=== PATIENT | female | born 1935 | race American Indian/Alaskan Native ===

== ENCOUNTER 2017-01-11 15:01 | Inpatient (IN) | payer MEDICAID, OTHER ==
[2017-01-11 15:09] VITALS: BMI 31.4
[2017-01-11 16:28] LABS: BASO # 0.03 K/mm3 (0.0-2.0); BASO % 0.5 % (0.0-3.0); EOS # 0.2 (0.0-0.7); EOS % 2.7 % (1.5-5.0); GRAN # 3.04 (1.4-6.5); GRAN % 54.9 % (50.0-68.0); HEMATOCRIT 45.6 % (36.0-48.0); LYMPH % 35.9 % (22.0-35.0); MEAN CELL VOLUME 79.7 fl (80.0-105.0); MEAN CORPUSCULAR HEMOGLOBIN 27.4 pg (25.0-35.0); MEAN CORPUSCULAR HGB CONC 34.4 g/dl (31.0-37.0); MEAN PLATELET VOLUME 10.2 fl (7.0-11.0); MONO # 0.3 (0.1-0.6); RED CELL DISTRIBUTION WIDTH 15.2 % (11.5-14.5); WHITE BLOOD COUNT 5.5 10^3/ul (4.5-11.0)
[2017-01-11 16:32] LABS: ALB/GLOB RATIO 1.4 (1.1-1.8); ALKALINE PHOSPHATASE 87 U/L (38-126); ALT/SGPT 33 U/L (7-56); AST/SGOT 37 U/L (14-36); BILIRUBIN,TOTAL 0.9 mg/dL (0.2-1.3); BLOOD UREA NITROGEN 9 mg/dL (7-21); CALCIUM 10.2 mg/dL (8.4-10.5); CARBON DIOXIDE 28 mmol/L (21-33); CHLORIDE 102 mmol/L (98-107); GFR AFRICAN-AMERICAN > 60; GLUCOSE,RANDOM 87 mg/dL (70-110); POTASSIUM 4.6 mmol/L (3.6-5.0); SODIUM 141 mmol/L (132-148); TOTAL PROTEIN 8.5 g/dL (5.8-8.3)
[2017-01-11 16:41] LABS: URINE BILIRUBIN NEGATIVE (NEGATIVE); URINE BLOOD NEGATIVE (NEGATIVE); URINE GLUCOSE (UA) NEGATIVE (NEGATIVE); URINE KETONE NEGATIVE (NEGATIVE); URINE LEUKOCYTE ESTERASE NEGATIVE Leu/uL (NEGATIVE); URINE PROTEIN NEGATIVE mg/dL (<30 mg/dL); URINE UROBILINOGEN 0.2 E.U./dL (<1 E.U./dL)
[2017-01-11 16:44] LABS: URINE APPEARANCE CLEAR (CLEAR); URINE COLOR LIGHT YELLOW (YELLOW)
[2017-01-11 16:44] LABS: TROPONIN I < 0.01 ng/mL
--- NOTE | 2017-01-11 17:22 | ED PDOC ---
Arrival/HPI <Neville Le - Last Filed: 01/11/17 20:17> - General Historian: Patient <Dorota Hernandez PA-C - Last Filed: 01/11/17 20:23> - General Chief Complaint: High Blood Pressure Time Seen by Provider: 01/11/17 15:24 - History of Present Illness Narrative History of Present Illness (Text): 01/11/17 17:19 81 yo F w/ pmh of HTN, reports feeling dizzy with no vertigo, associated with throbbing headache and palpitations this AM, she then checked her BP, which was elevated at 200 systolic, she took her BP medication, losartan. Afterwards, she checked her BP again and was still >200 systolic, and took her asa. States that she waited for her son to bring her to the ER, here she reports still feeling slightly dizzy with a mild headache. Reports (-) worsening of symptoms with movement of head or standing. Otherwise: (-) lightheadedness, (-) trauma, (-) URI symptoms, (-) tinnitus, (-) hearing loss, (-) chest pain, (-) SOB, (-) dyspnea, (-) fever, (-) vomiting, (-) diarrhea, (-) syncope, (-) GI bleeding. She adds that her HR is normally between 50-60, and that her pmd is aware. PMD Tosha Cloud (Dorota Hernandez PA-C) Past Medical History - Provider Review Nursing Documentation Reviewed: Yes - Infectious Disease Hx of Infectious Diseases: None - Cardiac Hx Hypertension: Yes Other/Comment: bradycardia. LBBB - Endocrine/Metabolic Hx Diabetes Mellitus Type 2: Yes - Psychiatric Hx Substance Use: No - Past Surgical History Past Surgical History: No Previous - Anesthesia Hx Anesthesia: Yes Hx Anesthesia Reactions: No Hx Malignant Hyperthermia: No - Suicidal Assessment Feels Threatened In Home Enviroment: No <Dorota Hernandez PA-C - Last Filed: 01/11/17 20:23> Family/Social History - Physician Review Nursing Documentation Reviewed: Yes Family/Social History: No Known Family HX Smoking Status: Never Smoked Hx Alcohol Use: No Hx Substance Use: No Hx Substance Use Treatment: No <Dorota Hernandez PA-C - Last Filed: 01/11/17 20:23> Allergies/Home Meds <Neville Le - Last Filed: 01/11/17 20:17> <Dorota Hernandez PA-C - Last Filed: 01/11/17 20:23> Allergies/Adverse Reactions: Allergies No Known Allergies Allergy (Verified 08/18/14 00:47) Home Medications: Home Meds Medication Instructions Recorded Confirmed Aspirin [Aspirin Chewable] 81 mg PO DAILY 08/18/14 01/11/17 Ergocalciferol [Drisdol 50,000 1 tab PO Q7D 01/11/17 01/11/17 Intl Units Cap] Losartan [Cozaar] 1 tab PO DAILY 01/11/17 01/11/17 Review of Systems - Review of Systems Constitutional: Normal. absent: Fatigue, Weight Change, Fevers Respiratory: Normal. absent: SOB, Cough, Sputum Cardiovascular: Normal, Palpitations. absent: Chest Pain, Edema Gastrointestinal: Normal. absent: Abdominal Pain, Diarrhea, Vomiting, Appetite Changes Musculoskeletal: Normal. absent: Arthralgias, Back Pain, Neck Pain Skin: Normal. absent: Rash, Pruritis, Skin Lesions Neurological: Normal, Headache, Dizziness. absent: Focal Weakness <Dorota Hernandez PA-C - Last Filed: 01/11/17 20:23> Physical Exam <Neville Le - Last Filed: 01/11/17 20:17> <Dorota Hernandez PA-C - Last Filed: 01/11/17 20:23> - Physical Exam Narrative Physical Exam (Text): 01/11/17 17:25 GENERAL APPEARANCE: Patient is awake, alert, oriented x 3, in no acute distress. SKIN: Warm, dry; (-) cyanosis. HEAD: (-) scalp swelling or tenderness. EYES: (-) conjunctival pallor. ENMT: TMs normal. Mucous membranes moist. NECK: (-) tenderness, (-) stiffness, (-) lymphadenopathy. Carotids: (-) bruit. CHEST AND RESPIRATORY: (-) rales, (-) rhonchi, (-) wheezes; breath sounds equal bilaterally. HEART AND CARDIOVASCULAR: (+) bradycardic, (-) irregularity; (-) murmur, (-) gallop. ABDOMEN AND GI: Soft; (-) distention, (-) tenderness, (-) rebound, (-) guarding , (-) palpable masses, (-) flank tenderness. EXTREMITIES: (-) deformity; (-) edema. Distal pulses: present. NEURO AND PSYCH: Mental status as above. stock control clerk: (-) nystagmus; Pupils equal & reactive, EOMI, (-) facial asymmetry; (-) dysarthria; tongue and uvula midline. Strength and DTRs symmetric. Gait: normal. (Dorota Hernandez PA-C) Vital Signs Temp Pulse Resp BP Pulse Ox 01/11/17 17:44 45 L 16 163/83 H 100 01/11/17 15:09 97.9 F 46 L 18 213/82 H 99 Medical Decision Making <Neville Le - Last Filed: 01/11/17 20:17> <Dorota Hernandez PA-C - Last Filed: 01/11/17 20:23> ED Course and Treatment: 01/11/17 17:23 81 yo F w/ pmh of HTN, reports feeling dizzy with no vertigo, associated with throbbing headache and palpitations this AM, she then checked her BP, which was elevated at 200 systolic, she took her BP medication, losartan. Previous medical records reviewed : patient last seen in this ED on 08/18/14, for elevated bp, it was noted that the patient was on losartan at that time and the patient also mentioned that her HR is normally in the 50's. DDx : hypertensive urgency, vertigo, migraine headache Plan: -- Labs -- IV -- Urinalysis -- EKG -- CXR -- Tylenol -- Reassess and disposition -- quality assurance monitor chassis EKG: SB at 46 bpm, w/ RBBB, (-) AV block noted, (-) acute ST changes, as read by [facility]. CXR : NAD, as read by [facility]A quality assurance monitor chassis shows : BP 195/86 P fluctuating 39-42 Labs reviewed and are wnl. On reevaluation, patient is laying in bed comfortably in no acute distress. Patient reports no headache, dizziness, palpitations, chest pain, shortness of breath at this time. CT head still pending. CT head is negative. On re-evaluation, patient is laying in bed in no distress. VS P 40's, BP 163/82 O2 sat 100%RA. Patient continues to deny any headache, dizziness, palpitations, chest pain, shortness of breath at this time. Repeat exam : lungs CTA, cardiac : +bradycardia, repeat neuro exam shows no focal findings. Based on history, exam and diagnostic results plan will be for inpatient obs to tele. Case d/w Dr. Givens, who came and evaluated the patient, agrees with plan for tele observation. Patient states she fully agrees with and understands further plan for inpatient tele observation. I have given the patient opportunity to ask any additional questions. (aDvid FRAZIER,Dorota Carty) - Lab Interpretations Lab Results: 01/11/17 16:00 01/11/17 16:00 Lab Results 01/11/17 16:25: Urine Color Light yellow, Urine Appearance Clear, Urine pH 6.0, Ur Specific [place] 1.010, Urine Protein Negative, Urine Glucose (UA) Negative, Urine Ketones Negative, Urine Blood Negative, Urine Nitrate Negative, Urine Bilirubin Negative, Urine Urobilinogen 0.2, Ur Leukocyte Esterase Negative 01/11/17 16:00: Sodium 141, Potassium 4.6, Chloride 102, Carbon Dioxide 28, Anion Gap 16, BUN 9, Creatinine 0.7, Est GFR ( Amer) > 60, Est GFR (Non- Af Amer) > 60, Random Glucose 87, Calcium 10.2, Total Bilirubin 0.9, AST 37 H, ALT 33, Alkaline Phosphatase 87, Lactate Dehydrogenase 620, Total Creatine Kinase 112, Troponin I < 0.01, Total Protein 8.5 H, Albumin 4.9 H, Globulin 3.6 , Albumin/Globulin Ratio 1.4 01/11/17 16:00: WBC 5.5, RBC 5.72, Hgb 15.7, Hct 45.6, MCV 79.7 L, MCH 27.4, MCHC 34.4, RDW 15.2 H, Plt Count 209, MPV 10.2, Gran % 54.9, Lymph % (Auto) 35.9 H, Edwards % (Auto) 6.0, Eos % (Auto) 2.7, Baso % (Auto) 0.5, Gran # 3.04, Lymph # 2.0, Edwards # 0.3, Eos # 0.2, Baso # 0.03 - RAD Interpretation Narrative RAD Interpretations (Text): 01/11/17 18:17 CT head : FINDINGS: HEMORRHAGE: No intracranial hemorrhage. BRAIN: No mass effect or edema. No atrophy or chronic microvascular ischemic changes. VENTRICLES: Unremarkable. No hydrocephalus. CALVARIUM: Unremarkable. PARANASAL SINUSES: Unremarkable as visualized. No significant inflammatory changes. MASTOID AIR CELLS: Unremarkable as visualized. No inflammatory changes. OTHER FINDINGS: None. IMPRESSION: Normal CT of the Head. (Dorota Hernandez PA-C) Radiology Orders: 01/11/17 16:09 CHEST PORTABLE [RAD] Stat 01/11/17 16:11 HEAD W/O CONTRAST [CT] Stat - Medication Orders Current Medication Orders: Aspirin (Aspirin Chewable) 81 mg PO DAILY [facility] Aspirin (Ecotrin) 81 mg PO DAILY [facility] Enoxaparin Sodium (Lovenox) 40 mg SC DAILY [facility] PRN Reason: Protocol Ergocalciferol (Drisdol 50,000 Intl Units Cap) 1 cap PO MON [facility] Hydralazine HCl (Apresoline) 10 mg PO BID [facility] Losartan Potassium (Cozaar) 100 mg PO DAILY [facility] Pantoprazole Sodium (Protonix Ec Tab) 20 mg PO 0600,1600 [facility] Discontinued Medications Acetaminophen (Tylenol 325mg Tab) 650 mg PO STAT [facility] Stop: 01/11/17 16:10 Last Admin: 01/11/17 17:13 Dose: 650 mg - PA / SHIP STEWARD / Resident Statement ED has reviewed & agrees with the documentation as recorded. <Neville Le - Last Filed: 01/11/17 20:17> - PA / SHIP STEWARD / Resident Statement ED has reviewed & agrees with the documentation as recorded. <Dorota Hernandez PA-C - Last Filed: 01/11/17 20:23> Disposition/Present on Arrival <Neville Le - Last Filed: 01/11/17 20:17> - Present on Arrival Any Indicators Present on Arrival: No History of DVT/PE: No History of Uncontrolled Diabetes: No Urinary Catheter: No History of Decub. Ulcer: No History Surgical Site Infection Following: None - Disposition Have Diagnosis and Disposition been Completed?: Yes Disposition Time: 19:00 Patient Plan: Observation, Telemetry <Dorota Hernandez PA-C - Last Filed: 01/11/17 20:23> - Disposition Diagnosis: Symptomatic bradycardia, Hypertensive urgency Disposition: HOSPITALIZED Condition: STABLE Referrals: Anish Givens MD [Primary Care Provider] - Follow up with primary Forms: [facility] ([place])
--- NOTE | 2017-01-11 18:14 | CT ---
PROCEDURE: CT HEAD WITHOUT CONTRAST. HISTORY: dizziness COMPARISON: None available. TECHNIQUE: Axial computed tomography images were obtained through the head/brain without intravenous contrast. Radiation dose: Total exam DLP = 887.13 mGy-cm. This CT exam was performed using one or more of the following dose reduction techniques: Automated exposure control, adjustment of the mA and/or kV according to patient size, and/or use of iterative reconstruction technique. FINDINGS: HEMORRHAGE: No intracranial hemorrhage. BRAIN: No mass effect or edema. No atrophy or chronic microvascular ischemic changes. VENTRICLES: Unremarkable. No hydrocephalus. CALVARIUM: Unremarkable. PARANASAL SINUSES: Unremarkable as visualized. No significant inflammatory changes. MASTOID AIR CELLS: Unremarkable as visualized. No inflammatory changes. OTHER FINDINGS: None. IMPRESSION: Normal CT of the Head.
[2017-01-11] MEDS ORDERED: Ergocalciferol 50,000 Intl Units Cap PO SCH (20:15)
[2017-01-11 21:02] LABS: CHOLESTEROL 174 mg/dL (130-200)
[2017-01-11 21:20] LABS: FREE T4 0.94 ng/dL (0.78-2.19); T4 9.4 ug/dL (5.5-11.0)
[2017-01-11 21:33] LABS: THYROID STIMULATING HORMONE 1.64 mIU/mL (0.46-4.68)
[2017-01-11] MEDS: Enoxaparin 40 mg Syringe SC SCH (21:59)
[2017-01-11 22:21] LABS: TROPONIN I < 0.01 ng/mL
[2017-01-11 22:44] LABS: INR 1.08 (0.93-1.08); PARTIAL THROMBOPLASTIN TIME 27.2 Seconds (23.7-30.8)
[2017-01-12 04:47] LABS: TROPONIN I < 0.01 ng/mL
--- NOTE | 2017-01-12 05:03 | HP ---
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 Denies headache or chest pain. The patient 13 system review was negative for dizziness. Negative for syncope. Negative for loss of consciousness. Hepatitis B surface antibody quantitative. CODE STATUS: Full code. LIVING WILL AND ADVANCED DIRECTIVE: None. ALLERGIES: None. Height is 5 feet. Weight is 161. BMI is 31.4. HOME MEDICATIONS: Cozaar 100 mg daily Drisdol 50,000 weekly, aspirin 81 daily. SOCIAL HISTORY: Negative for smoking. Negative for alcohol. Negative for nicotine dependence. PAST MEDICAL HISTORY: Significant for hypertension, history of bradycardia, history of history of palpitations, history of bradycardia, history of right bundle-branch block. The patient was advised permanent pacemaker during the office visit, which the patient declined, history of negative mammogram last year, history of left breast intramammary lymph node, sinus bradycardia. MENSTRUAL HISTORY: Postmenopausal. FAMILY HISTORY: Positive for hypertension. OCCUPATIONAL HISTORY: Disabled. PHYSICAL EXAMINATION: GENERAL: The patient is seen in the emergency room, bed 20. VITAL SIGNS: Heart rate 46/45, blood pressure initially 213/82,163/83 and 161/80, respiration 18-20, O2 sat 98-100%. The patient is seen lying in the bed. HEAD: Examination normocephalic, atraumatic. HEENT: Examination shows pink conjunctivae. Anicteric sclerae. No oropharyngeal lesion. No neck rigidity. CHEST: Examination kyphosis. LUNGS: Examination shows no rales, crackles or wheezing. CARDIOVASCULAR: Shows S1, S2. Positive systolic murmur left sternal border, left second intercostal space. ABDOMEN: Soft. Positive bowel sound. GENITALIA: Female. RECTAL: Examination is deferred. EXTREMITIES: Shows no pitting edema. No calf tenderness. No Homans' sign. NEUROLOGIC: The patient is alert, awake, responsive, follows command. Moves upper and lower extremity without assistance. Gait examination is deferred. MUSCULOSKELETAL: Examination shows a BMI of 30.54. PSYCHIATRIC: Examination negative. DIAGNOSTICS: CBC within normal limit. The patient's PT/PTT is pending. Chemistry is within normal limits except for AST of 37, total protein 8.5, albumin 4.9. Troponin is negative. Urinalysis negative. The patient had a CT of the head done ordered by the physician insurance underwriting assistant. CT of the head was negative. EKG was done in the emergency room shows sinus bradycardia with right bundle-branch block and heart rate in 40s. The patient was seen in the emergency room by the physician insurance underwriting assistant. The patient was given Tylenol in the ER. The patient was seen by the physician insurance underwriting assistant in the ER and recommends admission to telemetry for observation. IMPRESSION AND PLAN 1. Uncontrolled accelerated hypertension versus hypertensive urgency versus hypertensive emergency. 2. Symptomatic bradycardia. 3. Right bundle-branch block. 4. Symptomatic bradycardia with dizziness and uncontrolled hypertension. 5. History of right bundle-branch block. 6. History of hypovitaminosis D. PLAN: At this time, the patient is to be admitted to telemetry observation. Thyroid panel, lipid panel has been ordered, repeat cardiac enzymes ordered. PT/PTT ordered. Cardiology consultation ordered with Dr. Cloud as per the patient's daughter's request. The patient is started on hydralazine 10 mg twice a day, aspirin 81 daily Cozaar 100 mg daily, Drisdol 50,000 weeks, Ecotrin 81 mg daily, Lovenox 40 mg subcutaneous daily for DVT and GI prophylaxis, Protonix 40 mg daily. The patient has been ordered repeat EKG. Heart healthy diet, out of bed. At present, the patient's condition, diagnosis, treatment plan, management plan discussed and explained to the patient's daughter, Maricruz, works as a area secretary on the second floor. Regarding to the patient's daughter, the patient's does not want to stay in the hospital and wants to leave and the patient is also refusing to even talk about a pacemaker, which may be a very strong possibility due to the patient's symptoms and objective and subjective data finding. At present the patient will be admitted to telemetry. The patient's further management will be dependent upon the patient's clinical condition, hemodynamic status and as per the patient response to therapeutic intervention as per the patient's diagnostic test results and as per recommendation by cardiology. Dictated and electronically signed, not read. Signing off, Anish Givens MD
[2017-01-12] MEDS: Pantoprazole 20 mg EC Tab PO SCH ×2 (06:17→17:50)
[2017-01-12 07:17] LABS: HEMATOCRIT 39.4 % (36.0-48.0); MEAN CELL VOLUME 79.4 fl (80.0-105.0); MEAN CORPUSCULAR HEMOGLOBIN 27.4 pg (25.0-35.0); MEAN CORPUSCULAR HGB CONC 34.5 g/dl (31.0-37.0); MEAN PLATELET VOLUME 10.8 fl (7.0-11.0); RED CELL DISTRIBUTION WIDTH 15.1 % (11.5-14.5); WHITE BLOOD COUNT 5.2 10^3/ul (4.5-11.0)
[2017-01-12 07:38] LABS: ALB/GLOB RATIO 1.3 (1.1-1.8); ALKALINE PHOSPHATASE 71 U/L (38-126); ALT/SGPT 24 U/L (7-56); AST/SGOT 28 U/L (14-36); BILIRUBIN,TOTAL 0.7 mg/dL (0.2-1.3); BLOOD UREA NITROGEN 9 mg/dL (7-21); CALCIUM 9.5 mg/dL (8.4-10.5); CARBON DIOXIDE 29 mmol/L (21-33); CHLORIDE 105 mmol/L (98-107); GFR AFRICAN-AMERICAN > 60; GLUCOSE,RANDOM 82 mg/dL (70-110); POTASSIUM 3.7 mmol/L (3.6-5.0); SODIUM 142 mmol/L (132-148); TOTAL PROTEIN 6.5 g/dL (5.8-8.3)
--- NOTE | 2017-01-12 07:38 | RAD ---
HISTORY: dizziness COMPARISON: 08/18/2014 FINDINGS: LUNGS: No active pulmonary disease. PLEURA: No significant pleural effusion identified, no pneumothorax apparent. CARDIOVASCULAR: Normal. OSSEOUS STRUCTURES: No significant abnormalities. VISUALIZED UPPER ABDOMEN: Normal. OTHER FINDINGS: None. IMPRESSION: No active disease.
--- NOTE | 2017-01-12 09:44 | CARD ---
APPROVED REPORT EKG Measurement Heart [id number] <Conclusion> Marked sinus bradycardia Right bundle branch block Abnormal ECG
--- NOTE | 2017-01-12 09:56 | CP.PCM.PN ---
<NAVEENEVE - Last Filed: 01/12/17 10:50> Subjective - Date & Time of Evaluation Date of Evaluation: 01/12/17 Time of Evaluation: 09:34 - Subjective Subjective: Medicine Progress Note for Dr. Givens: Pt seen and examined at bedside. Pt denied any acute overnight events. At time of examination, pt denied CP, SOB, n/v/d, chills, fever, abdominal pain, dysuria , dizziness, or fatigue. Objective - Vital Signs/Intake and Output Vital Signs (last 24 hours): Temp Pulse Resp BP Pulse Ox 98.0 F 50 L 19 182/66 H 100 01/12/17 06:00 01/12/17 06:17 01/12/17 06:00 01/12/17 06:17 01/12/17 06:00 Intake and Output: 01/12/17 01/12/17 06:59 18:59 Intake Total 120 Output Total 0 Balance 120 - Medications Medications: Current Medications Aspirin (Aspirin Chewable) 81 mg PO DAILY [facility] Aspirin (Ecotrin) 81 mg PO DAILY [facility] Last Admin: 01/11/17 21:08 Dose: 81 mg Atorvastatin Calcium (Lipitor) 40 mg PO DIN [facility] Enoxaparin Sodium (Lovenox) 40 mg SC DAILY [facility] PRN Reason: Protocol Last Admin: 01/11/17 21:59 Dose: 40 mg Ergocalciferol (Drisdol 50,000 Intl Units Cap) 1 cap PO MON [facility] Last Admin: 01/11/17 21:59 Dose: 1 cap Hydralazine HCl (Apresoline) 10 mg PO BID [facility] Last Admin: 01/12/17 06:17 Dose: 10 mg Losartan Potassium (Cozaar) 100 mg PO DAILY [facility] Pantoprazole Sodium (Protonix Ec Tab) 20 mg PO 0600,1600 [facility] Last Admin: 01/12/17 06:17 Dose: 20 mg - Labs Labs: 01/12/17 07:10 01/12/17 04:05 PT 11.7 Seconds (9.9-11.8) 01/11/17 22:05 INR 1.08 (0.93-1.08) 01/11/17 22:05 APTT 27.2 Seconds (23.7-30.8) 01/11/17 22:05 - Constitutional Appears: No Acute Distress - Head Exam Head Exam: ATRAUMATIC, NORMOCEPHALIC - Eye Exam Eye Exam: EOMI, PERRL - ENT Exam ENT Exam: Mucous Membranes Moist - Neck Exam Neck Exam: Full ROM. absent: Lymphadenopathy, Tenderness, Thyromegaly - Respiratory Exam Respiratory Exam: Clear to Ausculation Bilateral. absent: Accessory Muscle Use , Rales, Rhonchi, Wheezes, Respiratory Distress - Cardiovascular Exam Cardiovascular Exam: Bradycardia, REGULAR RHYTHM, +S1, +S2. absent: Gallop, Rubs, Murmur - GI/Abdominal Exam GI & Abdominal Exam: Soft. absent: Distended, Guarding, Tenderness, Mass, Organomegaly, Rebound - Extremities Exam Extremities Exam: Normal Inspection - Neurological Exam Neurological Exam: Alert, Awake, Oriented x3 - Psychiatric Exam Psychiatric exam: Normal Affect, Normal Mood - Skin Skin Exam: Dry, Intact, Normal Color, Warm Assessment and Plan - Assessment and Plan (Free Text) Assessment: 81 yo F with PMHx of HTN, bradycardia, palpatations, and RBBB presented with elevated BP and dizziness will be evaluated and treated for hypertensive urgency and symptomatic bradycardia. Plan: 1. HTN Urgency - BP 213/82 on admission - HTN emergency not likely, no clinical signs of end organ damage - Cozaar 100 mg PO daily - Hydralazine 10 mg PO BID - C/w ASA, Lipitor 2. Symptomatic Bradycardia - EKG shows heart rate of 48, irregular rhythm, and RBBB; No AV block - CT head negative - Troponin negative x3 - UA, TSH, Lipid panel WNL - F/u Lyme IgG, IgM as Lyme disease can lead to conduction abnormalities - Cardiology Consulted 3. Anxiety - Xanax 0.25 mg PO daily GI/DVT PPx - Lovenox - Protonix Pt seen and discussed in detail with Dr. Givens. Hernan Kenney, PGY1 <Anish Givens U - Last Filed: 01/13/17 21:58> Objective - Vital Signs/Intake and Output Vital Signs (last 24 hours): Temp Pulse Resp BP Pulse Ox 97.6 F 76 17 101/60 100 01/13/17 18:00 01/13/17 18:00 01/13/17 18:00 01/13/17 18:00 01/13/17 06:00 - Medications Medications: Current Medications Alprazolam (Xanax) 0.25 mg PO DAILY [facility] PRN Reason: Protocol Stop: 01/20/17 10:01 Last Admin: 01/13/17 12:35 Dose: 0.25 mg Amlodipine Besylate (Norvasc) 10 mg PO DAILY [facility] Last Admin: 01/13/17 12:35 Dose: 10 mg Aspirin (Aspirin Chewable) 81 mg PO DAILY [facility] Last Admin: 01/13/17 12:36 Dose: 81 mg Atorvastatin Calcium (Lipitor) 40 mg PO DIN [facility] Last Admin: 01/13/17 16:56 Dose: 40 mg Clopidogrel Bisulfate (Plavix) 75 mg PO DAILY [facility] Enoxaparin Sodium (Lovenox) 40 mg SC DAILY [facility] PRN Reason: Protocol Last Admin: 01/13/17 12:36 Dose: 40 mg Ergocalciferol (Drisdol 50,000 Intl Units Cap) 1 cap PO MON [facility] Last Admin: 01/11/17 21:59 Dose: 1 cap Hydralazine HCl (Apresoline) 10 mg PO QID [facility]N PRN Reason: for sbp>170 Hydrochlorothiazide (Microzide) 12.5 mg PO DAILY [facility] Last Admin: 01/13/17 12:35 Dose: 12.5 mg Losartan Potassium (Cozaar) 100 mg PO DAILY [facility] Last Admin: 01/13/17 12:38 Dose: 100 mg Pantoprazole Sodium (Protonix Ec Tab) 20 mg PO 0600,1600 [facility] Last Admin: 01/13/17 15:00 Dose: 20 mg Polyethylene Glycol (Miralax) 17 gm PO BID [facility] Spironolactone (Aldactone) 25 mg PO DAILY [facility] Last Admin: 01/13/17 12:34 Dose: 25 mg - Labs Labs: PT 11.7 Seconds (9.9-11.8) 01/11/17 22:05 INR 1.08 (0.93-1.08) 01/11/17 22:05 APTT 27.2 Seconds (23.7-30.8) 01/11/17 22:05 Attending/Attestation - Attestation I have personally seen and examined this patient.: Yes I have fully participated in the care of the patient.: Yes I have reviewed all pertinent clinical information, including history, physical exam and plan: Yes
[2017-01-12] MEDS: Enoxaparin 40 mg Syringe SC SCH (10:35)
[2017-01-12] MEDS ORDERED: Potassium Chloride 20 mEq ER Tab PO ONE ×3 (11:03→13:14)
--- NOTE | 2017-01-12 14:19 | PN ---
DATE: 01/12/2017 SUBJECTIVE: The patient is seen in room 267, bed 2. PHYSICAL EXAMINATION: VITAL SIGNS: T-max is 98.0. Telemetry shows sinus bradycardia, heart rate still in 40s, blood pressure is 169/68, 182/66, and 137/72, respirations 19, and O2 saturation 100%. HEENT: Head examination; normocephalic and atraumatic. HEENT examination shows pink conjunctivae. Anicteric sclerae. No oropharyngeal lesion. NECK: No neck rigidity. CHEST: Kyphosis. LUNGS: Shows no rales, crackles, or wheezing. CARDIOVASCULAR: S1 and S2, regular rhythm. ABDOMEN: Soft. Positive bowel sounds. GENITALIA: Female. RECTAL: . MUSCULOSKELETAL: Shows a body mass index of 32. NEUROLOGIC: The patient is alert, awake, and oriented. According to the patient's daughter who I spoke to her on the phone, she reports the patient has been anxious. EXTREMITIES: Shows no pitting edema. No calf tenderness. No Homans sign. No clubbing. No cyanosis. VASCULAR: Palpable pulses. DIAGNOSTIC DATA: On 01/12/2017; WBC 5.2, hemoglobin and hematocrit 13.6 and 39.4, and platelet 203. Sodium 142, potassium 3.7, chloride 105, CO2 of 29, anion gap 12, BUN 9, creatinine 0.7, GFR greater than 60, glucose 82, and calcium 9.5. LFTs are normal. All 3 sets of cardiac enzymes are negative. Cholesterol 174, LDL 86, and HDL 57. Thyroid profile is within normal limits. Urinalysis is negative. Repeat EKG shows sinus bradycardia, right bundle-branch block, and sinus arrhythmia. IMPRESSION: 1. Uncontrolled hypertension versus hypertensive urgency and emergency. 2. Severe sinus bradycardia with right bundle-branch block with symptoms of dizziness. 3. Severe symptomatic bradycardia right bundle-bundle branch block with dizziness and uncontrolled hypertension. 4. Right bundle-branch block. 5. Hypovitaminosis D. 6. Uncontrolled hypertension. 7. Uncontrolled systolic hypertension. 8. Anxiety. 9. Elevated LDL. PLAN: At this time, we are awaiting evaluation by cardiology. The patient has been ordered hydralazine 10 mg twice a day, aspirin 81 daily, Cozaar 100 mg daily, Drisdol 50,000 weekly, and Ecotrin 81 mg daily. The patient was given dose of potassium 40 mEq by cardiology, Lipitor 40 mg daily, Lovenox 40 mg subcutaneously daily, Protonix 20 twice a day, and Xanax 0.25 daily. Holter monitor ordered by Cardiology. Echo ordered by Cardiology. Stress test ordered by Cardiology. The patient has been awaiting further diagnostic therapeutic intervention. We will await further recommendations by Cardiology. Regarding further management, the patient's daughter has been updated about the patient's further diagnostic and therapeutic intervention plan. All questions concerned and answered to satisfaction with the daughter. Dictated and electronically signed, not read. Anish Givens MD
--- NOTE | 2017-01-12 17:39 | CON ---
DATE OF SERVICE: 01/12/2017 REASON FOR CONSULTATION: Bradycardia, rule out need of pacemaker. HISTORY OF PRESENT ILLNESS: This is an 81-year-old female, admitted with complaints of elevated blood pressure, headache, some pressure in the chest, and dizziness. Denies any chest pain now. Denies any dizziness. Denies any syncope type of feeling, but yesterday was feeling dizzy. Blood pressure at home was found to be more than 200 according to the daughter. In ER, the blood pressure was 213/82. PAST MEDICAL HISTORY: Significant for hypertension, history of palpitation, history of bradycardia. SOCIAL HISTORY: Denies smoking, denies any history of alcohol abuse. CURRENT MEDICATIONS: The patient is on Cozaar 100 mg daily, aspirin, and ergocalciferol (Drisdol) 50,000 unit capsule every week. PREVIOUS CARDIAC WORKUP: Nothing significant in the computer, though the patient had an echo done before the cataract surgery 2 to 3 years ago and was thought to be normal from the top of the head which I can recall. REVIEW OF SYSTEMS: As per HPI. ALLERGIES: NO KNOWN DRUG ALLERGIES. PHYSICAL EXAMINATION: VITAL SIGNS: Height of the patient is 5 feet, weight of the patient is 161 pounds, body mass index 31.4 kg per m2, temperature 98, heart rate 58, blood pressure 169/68. HEENT: PERRLA. Extraocular ocular muscles intact. NECK: Supple. No carotid bruit or thyromegaly. CHEST: Clear to auscultation. HEART: S1 and S2 regular. ABDOMEN: Soft. EXTREMITIES: Clubbing and cyanosis negative. LABORATORY DATA: WBC 5.2, hemoglobin 13.6, hematocrit 39.4, platelet count 203. Chemistry shows sodium 142, potassium 3.7, chloride 105, carbon dioxide 20, anion gap of 12, BUN 9, creatinine 0.7, troponin 0.01 x3 negative. EKG shows sinus bradycardia, no acute ST-T changes noted. Telemetry strip reviewed, lowest heart rate was 38 at 1:45 a.m. Baseline EKG, sinus bradycardia with right bundle-branch block. IMPRESSION: An 81-year-old female with past medical longstanding history of hypertension, admitted with uncontrolled hypertension, chest pressure, and bradycardia. RECOMMENDATION: We will get echo with stress test, lipid profile, TSH, Holter to assess the need of a pacemaker. The patient is on 100 mg of losartan. Pressure is not well controlled. We will add Norvasc and hydrochlorothiazide plus increase p.r.n. of hydralazine. We will get the stress test tomorrow, so we will complete 24 hours of Holter without any interruption and we will do a stress test echo tomorrow. We will avoid rate-limiting calcium channel manoj or beta-manoj. We will put spironolactone and 25 mg hydrochlorothiazide and Norvasc and get a stress test tomorrow and echo. Further recommendation after workup and surveillance monitor to assess the need of pacemaker. We will follow with you. Thank you Dr. Givens for providing me the opportunity in taking care of the patient, Kevin Miller. Cori Cloud MD
--- NOTE | 2017-01-13 01:09 | CARD ---
APPROVED REPORT EKG Measurement Heart [id number] CO [id number] [id number] <Conclusion> Marked sinus bradycardia with sinus arrhythmia Right bundle branch block Abnormal ECG
[2017-01-13] MEDS: Pantoprazole 20 mg EC Tab PO SCH ×2 (05:31→15:00)
[2017-01-13] MEDS ORDERED: Potassium Chloride 20 mEq ER Tab PO ONE (08:47)
[2017-01-13] MEDS ORDERED: Aminophylline 25 mg/ml Inj ONE (09:30)
--- NOTE | 2017-01-13 12:25 | PN ---
REASON FOR CONSULTATION: Followup bradycardia, rule out need for pacemaker. SUBJECTIVE: The patient denies any chest pain, shortness of breath or any palpitation; on way to echo lab for a stress test. OBJECTIVE: GENERAL: Not in apparent distress. VITAL SIGNS: Telemetry strip shows heart rate 48. EKG shows normal sinus bradycardia, heart rate of 48. Temperature afebrile, heart rate 46, and blood pressure 144/73. HEENT: PERRLA, intact. NECK: Supple. No carotid bruit or thyromegaly. CHEST: Clear to auscultation. HEART: S1 and S2 regular. ABDOMEN: Soft. EXTREMITIES: Clubbing and cyanosis negative. LABORATORY DATA: Blood workup as follows: WBC is 5.2, hemoglobin 13.6, hematocrit 39.4, platelet count 203. Chemistry shows sodium 142, potassium 3.7, chloride 105, carbon dioxide 29, anion gap of 12, BUN 9, creatinine 0.7. Troponin remains 0.01, negative. IMPRESSION: Bradycardia, which has been for long time. Discussed with the daughter, Maricruz, who was in the telemetry. She said the last 2 to 3 years the patient has been bradycardic and was seen by me at one point for preop clearance for cataract. At that time, the patient was bradycardic asymptomatic; hypertension uncontrolled, admitting blood pressure 213/82, which has now resolved, and the patient has fairly stable blood pressure; rule out underlying coronary artery disease, rule out ischemia, rule out any structural heart disease. So far, no evidence of acute myocardial infarction, troponin remains negative. PLAN: To continue echo and stress test. Holter monitor is completed, we will review it. So far, it does not look like the patient needs pacemaker though the patient is bradycardic with baseline, but asymptomatic. Further recommendation will be made upon reviewing more telemetry strip and Holter to assist the need of pacemaker as well as stress test result. Interim, continue aggressive control of blood pressure. The patient is currently on losartan 100 mg, spironolactone added as well as hydrochlorothiazide was added amlodipine. The patient's blood pressure is fairly stable. We will monitor closely once the echo and the stress are done. Recommendation will be made to whether the patient definitely needs pacemaker or not. Interim, continue theater manager. We will discuss with the family. We will supplement potassium. Thank you Dr. Givens for providing me the opportunity in taking care of the patient. Cori Cloud MD
[2017-01-13] MEDS: Enoxaparin 40 mg Syringe SC SCH (12:36)
[2017-01-13 13:26] LABS: ALB/GLOB RATIO 1.3 (1.1-1.8); ALKALINE PHOSPHATASE 68 U/L (38-126); ALT/SGPT 16 U/L (7-56); AST/SGOT 30 U/L (14-36); BILIRUBIN,DIRECT 0.3 mg/dL (0.0-0.4); BILIRUBIN,TOTAL 1.1 mg/dL (0.2-1.3); BLOOD UREA NITROGEN 11 mg/dL (7-21); CALCIUM 9.8 mg/dL (8.4-10.5); CARBON DIOXIDE 25 mmol/L (21-33); CHLORIDE 104 mmol/L (98-107); GFR AFRICAN-AMERICAN > 60; GLUCOSE,RANDOM 102 mg/dL (70-110); MAGNESIUM 2.1 mg/dL (1.7-2.2); POTASSIUM 4.4 mmol/L (3.6-5.0); SODIUM 140 mmol/L (132-148); TOTAL PROTEIN 7.7 g/dL (5.8-8.3)
--- NOTE | 2017-01-13 14:33 | CP.PCM.PN ---
Objective - Vital Signs/Intake and Output Vital Signs (last 24 hours): Temp Pulse Resp BP Pulse Ox 98.2 F 46 L 20 148/70 100 01/13/17 06:00 01/13/17 06:00 01/13/17 06:00 01/13/17 12:35 01/13/17 06:00 Intake and Output: 01/13/17 01/13/17 06:59 18:59 Intake Total 360 Balance 360 - Medications Medications: Current Medications Alprazolam (Xanax) 0.25 mg PO DAILY [facility] PRN Reason: Protocol Stop: 01/20/17 10:01 Last Admin: 01/13/17 12:35 Dose: 0.25 mg Amlodipine Besylate (Norvasc) 10 mg PO DAILY [facility] Last Admin: 01/13/17 12:35 Dose: 10 mg Aspirin (Aspirin Chewable) 81 mg PO DAILY [facility] Last Admin: 01/13/17 12:36 Dose: 81 mg Atorvastatin Calcium (Lipitor) 40 mg PO DIN [facility] Last Admin: 01/12/17 17:50 Dose: 40 mg Enoxaparin Sodium (Lovenox) 40 mg SC DAILY [facility] PRN Reason: Protocol Last Admin: 01/13/17 12:36 Dose: 40 mg Ergocalciferol (Drisdol 50,000 Intl Units Cap) 1 cap PO MON [facility] Last Admin: 01/11/17 21:59 Dose: 1 cap Hydralazine HCl (Apresoline) 10 mg PO QID PRN PRN Reason: for sbp>170 Hydrochlorothiazide (Microzide) 12.5 mg PO DAILY [facility] Last Admin: 01/13/17 12:35 Dose: 12.5 mg Losartan Potassium (Cozaar) 100 mg PO DAILY [facility] Last Admin: 01/13/17 12:38 Dose: 100 mg Pantoprazole Sodium (Protonix Ec Tab) 20 mg PO 0600,1600 [facility] Last Admin: 01/13/17 05:31 Dose: 20 mg Spironolactone (Aldactone) 25 mg PO DAILY [facility] Last Admin: 01/13/17 12:34 Dose: 25 mg - Labs Labs: 01/12/17 07:10 01/13/17 13:00 PT 11.7 Seconds (9.9-11.8) 01/11/17 22:05 INR 1.08 (0.93-1.08) 01/11/17 22:05 APTT 27.2 Seconds (23.7-30.8) 01/11/17 22:05
--- NOTE | 2017-01-13 16:02 | CARD ---
APPROVED REPORT Protocol: LEXISCAN Test Type: Lexiscan Sestamibi Stress Test Attending Physician: Dr. Cori White Referring Physician: Dr. Anish Givens Test Indications: Chest Pain Height:5 ft 0 in Weight:161lbs Medications: Losartan, Vitamin D,Aspirin Medical History: 81 y/o female with a history of palpitations, diabetes, htn, hyperlipidemia, bradycardi Target HR: 139 bpm Resting ECG: RSR. RBBB. Resting Heart Rate: 45 bpm Resting Blood Pressure: 124/72mmHg Submaximum (85%): 118 bpm PROCEDURE Pharmacologic stress testing was performed using 0.4mg per 5ml of regadenoson given intravenously over 7-10 seconds. Reversal agent aminophyline 100 mg, given intravenously for Other. POST EXERCISE Reason for Termination: Protocol completed Target HR: No Max HR: 49 bpm 59% of Maximum Predicted HR: 139 bpm Exercise duration: 00:32 min:sec, 0 Stage Exercise capacity: 1.0METs Max Blood Pressure: 156/70mmHg Blood Pressure response to exercise: normal resting BP - appropriate response Heart Rate response to exercise: appropriate Chest Pain: No, none Angina index: 0 Arrhythmia: No, none ST Change: No, none Deviation: 0 mm INTERPRETATION Stress EKG Conclusion: IV LEXISCAN NUCLEAR STRESS TEST NEGATIVE FOR CHEST PAIN AND NEGATIVE FOR ST-T CHANGES. NUCLEAR SCAN REPORT PENDING. Signed by Cori White Electronically Approved: 01/13/2017 10:25:03 EXAM: Myocardial Perfusion REST/STRESS Stress Test Type: Pharmacologic Imaging Protocol Rest Spect myocardial perfusion imaging was performed in supine position 60 minutes following the injection of 10.3 mCi of Tc-99 Myoview. At peak stress, the patient was injected intravenously with 30.4mCi of Tc-99 tetrofosmin after an infusion time of 0 minutes and 10 seconds. Gated Stress Spect was performed 80 minutes after intravenous Tc-99 Myoview injection. The images were gated to evaluate regional wall motion and calculate ventricular ejection fraction.Images were reconstructed using backfilter projection method in short horizontal and verticle long axis. Spect slices were generated. LV Perfusion The quality of the study is good. The left ventricle is normal in size. The right ventricle is unremarkable. The lung uptake is normal. The distribution of tracer reveals a small area of mildly to moderately decreased perfusion in the apical wall on the stress study. The remainder of the LV myocardium is unremarkable. The rest myocardial perfusion study shows partial improvement of the defect. Wall Motion Normal gated wall motion of the left ventricle. LVEF = 63%. Conclusion 1. Probably abnormal SPECT myocardial perfusion study. 2. Partially reversible, apical defect is suspicious of ischemia. 3. Normal gated wall motion of the left ventricel.
[2017-01-13] MEDS ORDERED: Magnesium Hydroxide Susp 30 ml UD PO ONE (18:17)
--- NOTE | 2017-01-13 18:34 | CARD ---
APPROVED REPORT EXAM: Two-dimensional and M-mode echocardiogram with Doppler and color Doppler. INDICATION CP/LVFX 2D DIMENSIONS IVSd1.0 (0.7-1.1cm)LVDd3.6 (3.9-5.9cm) PWd1.2 (0.7-1.1cm)LVDs2.3 (2.5-4.0cm) FS (%) 36.0 %LVEF (%)66.7 (>50%) M-Mode DIMENSIONS Aortic Root2.70 (2.2-3.7cm)Aortic Cusp Exc.1.60 (1.5-2.0cm) Aortic Valve AoV Peak Gbysdtoe600.0cm/Nirav Peak GR.8mmHg Mitral Valve MV E Crebwird15.1cm/sMV A Hniawhya48.0cm/sE/A ratio0.5 TDI Lateral E' Peak V6.04cm/sMedial E' Peak V5.46cm/sE/Lateral E'8.6 E/Medial E'9.5 Pulmonary Valve PV Peak Szauxvio59.4cm/sPV Peak Grad.2mmHg Tricuspid Valve TR Peak Ersfvawf885pe/sRAP [id number] Peak Gr.24mmHg [id number] LEFT VENTRICLE The left ventricle is normal size. There is borderline concentric left ventricular hypertrophy. The left ventricular function is normal.EF-65% There is normal LV segmental wall motion. Transmitral Doppler flow pattern is Grade III-reversible restrictive diastolic dysfunction. No left ventricle thrombus noted on this study. There is no ventricular septal defect visualized. There is no left ventricular aneurysm. There is no mass noted in the left ventricle. RIGHT VENTRICLE The right ventricle is normal size. There is normal right ventricular wall thickness. The right ventricular systolic function is normal. ATRIA The left atrium is borderline dilated, in long [place] The right atrium is borderline dilated., in long axis. The interatrial septum is intact with no evidence for an atrial septal defect. AORTIC VALVE The aortic valve is thickened but opens well. No aortic regurgitation is present. There is no aortic valvular stenosis. There is no aortic valvular vegetation. MITRAL VALVE The mitral valve is thickened but opens well. Mitral annular calcification is moderate. Mitral regurgitation is trace. There is no mitral valve stenosis. There is no evidence of mitral valve prolapse. TRICUSPID VALVE The tricuspid valve leaflets are thickened , but open well. There is trace to mild tricuspid regurgitation.RVSP-34 mmof hg. There is no tricuspid valve stenosis. There is no tricuspid valve prolapse or vegetation. PULMONIC VALVE The pulmonary valve is normal in structure. There is trace pulmonic valvular regurgitation. There is no pulmonic valvular stenosis. GREAT VESSELS The aortic root is normal in size. The ascending aorta is normal in size. The pulmonary artery is normal. The IVC is normal in size and collapses >50% with inspiration. PERICARDIAL EFFUSION There is no pleural effusion. There is no pericardial effusion. <Conclusion> The left ventricle is normal size. There is borderline concentric left ventricular hypertrophy. The left ventricular function is normal.EF-65% Mitral regurgitation is trace. There is trace to mild tricuspid regurgitation.RVSP-34 mmof hg. The IVC is normal in size and collapses >50% with inspiration. There is no pericardial effusion.
--- NOTE | 2017-01-14 00:13 | PN ---
DATE: SUBJECTIVE: The patient is seen on the first floor stress lab. The patient is in the process of getting a stress test done. Overnight nurse's notes were reviewed. The patient slept overnight without any adverse event. The patient today was found to be sitting up in the chair watching TV. No distress noted. OBJECTIVE: VITAL SIGNS: The patient is afebrile, T-max is 98.2; heart rate high 40s to low 50s; blood pressure in the last 24 hours 182/66, 169/68, 125/68, 152/77, 144/73, 148/70; respiration 17; O2 sat is 98% to 100%. HEENT AND NECK: Head examination, normocephalic and atraumatic. HEENT examination shows pink conjunctivae. Anicteric sclerae. No oropharyngeal lesion. No neck rigidity. CHEST: Kyphosis. LUNGS: Examination shows no rales, crackles or wheezing. CARDIOVASCULAR: S1, S2, regular rhythm and bradycardic rhythm. Questionable systolic murmur in right second intercostal space, left second intercostal space, left sternal border. ABDOMEN: Soft. Positive bowel sounds. GENITALIA: Female. RECTAL: Examination deferred. EXTREMITIES: Show no pitting edema, no calf tenderness, no Homans' sign. MUSCULOSKELETAL: Examination shows a body mass index of 30. Gait examination is not tested. Urine cultures negative. The patient had a myocardial stress test, echo, and EKG; all reviewed. IMPRESSION: 1. Uncontrolled hypertension with hypertensive urgency and emergency. 2. Severe symptomatic bradycardia. 3. Probably abnormal SPECT myocardial perfusion study with decreased perfusion and partially reversible apical defect, suspicious for coronary ischemia with left ventricle ejection fraction of 63%. 4. Left ventricular ejection fraction of 66% with borderline concentric left ventricular hypertrophy with grade 3 reversible restrictive diastolic dysfunction. 5. Moderate mitral annular calcification and trace mitral regurgitation. 6. Thickened tricuspid leaflet with mild tricuspid regurgitation with right ventricular systolic pressure of 34 mmHg. 7. Trace pulmonic regurgitation. 8. Borderline concentric left ventricular hypertrophy. 9. Severe symptomatic sinus bradycardia with right bundle-branch block. 10. Questionable anxiety disorder. CURRENT MEDICATIONS: Aldactone 25 mg daily, hydralazine 10 mg q.i.d. p.r.n., aspirin 81 mg daily, Cozaar 100 mg daily, vitamin D 50,000 weekly. The patient has been given multiple doses of potassium by Dr. Cloud, even though the potassium appears to be within normal limits. The patient has received four doses of potassium since yesterday. Lipitor 40 mg daily, Lovenox 40 mg subcu daily, hydrochlorothiazide 12.5 mg daily, MiraLax 17 g twice a day, Norvasc 10 mg daily. The patient has been given Plavix 300 stat today and Plavix 75 mg daily from tomorrow. It appears that the patient is going to be proceeding with cardiac catheterization. The patient has been ordered to be kept n.p.o. except meds. The patient is on Protonix 20 mg twice a day and Xanax 0.25 daily for anxiety. PLAN: At this time, the patient is to be reevaluated by Cardiology for further recommendation for abnormal stress test. The patient's Holter monitor results are pending. At this time, the patient has been ordered n.p.o. past midnight. The patient has been ordered out of bed to chair. At present, the patient's further management will be dependent upon the patient's clinical condition, hemodynamic status and as per the patient response to therapeutic intervention and as per patient further recommendation by Cardiology. Dictated and electronically signed, not read. Signing off; Anish Givens MD
--- NOTE | 2017-01-14 02:33 | CARD ---
APPROVED REPORT EKG Measurement Heart [id number] WI [id number] <Conclusion> Marked sinus bradycardia Right bundle branch block Abnormal ECG
[2017-01-14] MEDS: Pantoprazole 20 mg EC Tab PO SCH ×3 (05:22→17:07)
[2017-01-14 06:48] LABS: ALB/GLOB RATIO 1.3 (1.1-1.8); ALKALINE PHOSPHATASE 68 U/L (38-126); ALT/SGPT 31 U/L (7-56); AST/SGOT 29 U/L (14-36); BILIRUBIN,TOTAL 0.9 mg/dL (0.2-1.3); BLOOD UREA NITROGEN 12 mg/dL (7-21); CALCIUM 9.6 mg/dL (8.4-10.5); CARBON DIOXIDE 27 mmol/L (21-33); CHLORIDE 102 mmol/L (95-110); GFR AFRICAN-AMERICAN > 60; GLUCOSE,RANDOM 93 mg/dL (70-110); MAGNESIUM 2.2 mg/dL (1.7-2.2); PHOSPHOROUS 3.1 mg/dL (2.5-4.5); POTASSIUM 3.9 mmol/L (3.6-5.0); SODIUM 139 mmol/L (132-148); TOTAL PROTEIN 6.6 g/dL (5.8-8.3)
[2017-01-14 07:50] LABS: BASO # 0.05 K/mm3 (0.0-2.0); BASO % 0.8 % (0.0-3.0); EOS # 0.3 (0.0-0.7); EOS % 5.3 % (1.5-5.0); GRAN # 3.2 (1.4-6.5); GRAN % 52.7 % (50.0-68.0); HEMATOCRIT 41.1 % (36.0-48.0); LYMPH # 1.8 (1.2-3.4); LYMPH % 28.9 % (22.0-35.0); MEAN CELL VOLUME 79.3 fl (80.0-105.0); MEAN CORPUSCULAR HEMOGLOBIN 27.8 pg (25.0-35.0); MEAN PLATELET VOLUME 10.6 fl (7.0-11.0); MONO # 0.8 (0.1-0.6); MONO % 12.3 % (1.0-6.0); RED CELL DISTRIBUTION WIDTH 14.9 % (11.5-14.5); WHITE BLOOD COUNT 6.1 10^3/ul (4.5-11.0)
[2017-01-14] MEDS ORDERED: Potassium Chloride 20 mEq ER Tab PO ONE (09:49)
[2017-01-14] MEDS: POLYETHYLENE GLYCOL 3350 17 GM/Dose PACKET PO SCH ×2 (10:40→17:07)
--- NOTE | 2017-01-14 11:05 | PN ---
DATE: 01/14/2017 REASON FOR CONSULTATION: Followup bradycardia, rule out need of pacemaker, and abnormal stress test. SUBJECTIVE: The patient denies any chest pain, shortness of breath, or any palpitation. OBJECTIVE/PHYSICAL EXAMINATION: As follows: GENERAL: Lying flat in the bed. VITAL SIGNS: Temperature is afebrile, heart rate is 52, and blood pressure is 153/80. HEENT: PERRLA. Extraocular muscles are intact. NECK: Supple. No carotid bruit or thyromegaly. CHEST: Clear to auscultation. HEART: S1 and S2 regular. ABDOMEN: Soft. EXTREMITIES: Clubbing and cyanosis negative. LABORATORY DATA: Blood workup as follows: WBC of 6.1, hemoglobin of 14.4, hematocrit of 41.1, and platelet count of 201. Chemistry shows sodium of 139, potassium of 3.9, chloride of 102, carbon dioxide of 27, anion gap of 14, BUN of 12, and creatinine of 0.7. Troponin remains negative. DIAGNOSTIC DATA: Stress test; the patient underwent IV Lexiscan yesterday read as probably abnormal except myocardial perfusion study partially reversible apical defects suspicious for ischemic ejection fraction reported 63%. The patient had echocardiography done yesterday ejection fraction of 65%, trace mitral regurgitation, mild tricuspid regurgitation, and RV systolic pressure of 35. IMPRESSION: Uncontrolled hypertension which is fairly stable now. Abnormal stress test and echocardiogram shows preserved left ventricular function. Bradycardia is baseline, the patient is running bradycardia for long time asymptomatic. RECOMMENDATIONS: Avoid beta-manoj, avoid heart rate limiting and calcium channel manoj. Discussed yesterday with the patient's daughter explained the patient about cardiac catheterization. the patient is scheduled for cardiac catheterization at 10:30. We will keep n.p.o. and loaded the Plavix last night. Further recommendation of the cardiac catheterization. We will follow with you. In the interim, continue beta-manoj, aspirin and Plavix. Discontinue Lovenox KCl today. Further recommendation after the cardiac catheterization. Thank you Dr. Givens for providing me the opportunity in taking care of the patient. Cori Cloud MD [facility] # [id number]
--- NOTE | 2017-01-14 12:57 | PN ---
DATE: 01/14/2017 SUBJECTIVE: The patient is seen out of bed to chair in room 267, bed 2. The patient is awaiting for cardiac catheterization today. Overnight nurses' notes were reviewed. The patient rested well, slept well according to the nurses' notes.. The patient has been n.p.o. for cardiac catheterization today. OBJECTIVE: VITAL SIGNS: T-max 97. Telemetry shows sinus bradycardia, heart rate in 50s and high 40s. Blood pressure is episodically elevated 123/66, 153/84, 166/68, 148/70, 144/73. Respirations 20. O2 sat 97%. HEAD: Examination normocephalic, atraumatic. EENT: Examination shows pinkish conjunctivae. Anicteric sclerae. No oropharyngeal lesion. NECK: No neck rigidity. CHEST: Kyphosis. LUNGS: Examination shows no rales, crackles or wheezing. CARDIOVASCULAR: S1, S2. Regular rhythm. Questionable soft systolic murmur, right second intercostal space, left sternal border, left second intercostal space. ABDOMEN: Soft. Positive bowel sound. GENITALIA: Female. RECTAL: Examination is deferred. EXTREMITIES: Shows no pitting edema, no calf tenderness, no Homans' sign. NEUROLOGIC: The patient is alert, awake and responsive. Motor strength 5/5. Gait examination not tested. VASCULAR: Palpate pulses. DIAGNOSTIC DATA: From 01/14/2017; WBC 6.1, hemoglobin/hematocrit 14.4/41.1, platelets 201. Sodium 139, potassium 3.9, chloride 102, CO2 of 27, anion gap 14, BUN 12, creatinine 0.7, GFR greater than 60, glucose 93, calcium 9.6, phosphorus 3.1, magnesium 2.2. LFTs are normal. As mentioned, the patient's urine cultures were negative. The patient's stress test was abnormal which was noted yesterday. The patient's EKG today shows sinus rhythm, heart rate of 73, right bundle-branch block, left axis deviation. IMPRESSION: 1. Uncontrolled hypertension with hypertensive urgency and emergency. 2. Severe symptomatic bradycardia. 3. Severe symptomatic bradycardia. 4. Left axis deviation and right bundle-branch block. 5. Abnormal SPECT myocardial perfusion study with decreased perfusion and partially reversible apical defect suspicious for coronary ischemia and left ventricle ejection fraction 63%. 6. Concentric left ventricular hypertrophy with left ventricular ejection fraction of 66% and grade 3 reversible restrictive diastolic dysfunction. 7. Moderate mitral annular calcification and trace mitral regurgitation. 8. Thickened tricuspid leaflet with mild tricuspid regurgitation with right ventricular systolic pressure of 34 mmHg. 9. Trace pulmonic regurgitation. 10. Borderline concentric left ventricular hypertrophy. 11. Severe symptomatic sinus bradycardia with right bundle-branch block, left anterior hemiblock, questionable. 12. Left axis deviation. 13. Right bundle-branch block. 14. Status post uncontrolled hypertension. 15. Left ventricular ejection fraction of 66%. 16. Concentric left ventricular hypertrophy with left ventricular ejection fraction of 65% with grade 3 reversible restrictive diastolic dysfunction. 17. Right and left atrial mild dilatation. 18. Moderate mitral annular calcification with trace mitral regurgitation. 19. Trace to mild tricuspid regurgitation with right ventricular systolic pressure of 34 mmHg. PLAN: At this time, the patient is awaiting for cardiac catheterization today. The patient has been ordered following medications; Aldactone 25 mg daily, hydralazine 10 mg q.i.d. p.r.n., aspirin 81 mg daily, Cozaar 100 mg daily, Drisdol 50,000 weekly. The patient is also complained of constipation yesterday for which the patient was given MiraLax and milk of magnesia, Norvasc 10 mg daily, Plavix 300 mg given yesterday, Plavix 75 mg daily, Protonix 40 mg daily, Xanax 0.25 daily. The patient is n.p.o. at present for cardiac catheterization. At present, the patient is awaiting for a cardiac catheterization. The patient will be monitored closely post cardiac catheterization. If the patient stays stable and if the patient is cleared for discharge postcath, the patient will be considered for discharge soon. Anish Givens MD
[2017-01-14] MEDS ORDERED: Lidocaine 2% Inj (20ml) ONE (14:55)
[2017-01-14] MEDS ORDERED: Nitroglycerin 50mg in D5W 50 MG/250 ML BOTTLE IV ONE (14:59)
--- NOTE | 2017-01-14 15:06 | CARD ---
APPROVED REPORT Reason for Test: BRADYCARDIA Hookup date: 2017-01-12 Scan date: 2017-01-14 Recording time: 23 HR 59 MIN Heart Rate Data Total Beats: 62130 Min HR: 37 BPM at 6:03AM Avg HR: 51 BPM Max HR: 115 BPM at 4:13AM Ventricular Ectopy Total VE Beats: 1 (0.0%) Single/Interp PVC: 0/1 Supraventricular Ectopy Total VE Beats: 593 (0.8%) Atrial Pairs: 8 Events Drop/Late: 0/10 Longest R-R: 1.7 sec at 6:02 AM Single PAC's: 549 Bi/Trigeminy: 0/18 Beats Conclusion SINUS RHYTHM / SINUS BRADYCARDIA / SINUS TACHYCARDIA MINIMUM HR 37 BPM MAXIMUM HR 115 BPM VERY RARE APC'S, PAIRED ISOLATED VPC, INTERPOLATED THERE WERE NO DIARY ENTRIES. ENTRIES.
[2017-01-14] MEDS ORDERED: Midazolam 2 MG/2 ML VIAL ONE (15:15)
[2017-01-14] MEDS ORDERED: Bacitracin 500 Units/gm Oint Foilpak UD TOP ONE (16:12)
[2017-01-14] MEDS ORDERED: Sodium Chloride 0.9% 1,000 ML IV SCH (16:15)
--- NOTE | 2017-01-14 16:28 | CARD ---
APPROVED REPORT Procedure(s) performed: Left Heart Catheterization HISTORY The patient is a 81 year-old female with a history of : most recent EF: 63%. (EF Method: RADIONUCLIDE), diabetes mellitus with diet treatment , tobacco history() : The patient is a former smoker , hypertension , dyslipidemia , Hx of bradycardia admitted with uncintrolled HTN, underwent stress test which was abnormal. INDICATION The indication(s) include : positive stress test. CASE TECHNIQUE The patient was brought electively to the Cardiac Catheterization Laboratory in a fasting state and was prepped and draped in a sterile manner. The left wrist was infiltrated with 2% Lidocaine subcutaneous anesthesia. A 6 Fr Glidesheath (Radial) sheath was inserted into the left radial artery without difficulty. Coronary angiography was performed using coronary diagnostic catheters. The left coronary system was accessed and visualized with a Diagnostic ,5 Fr JL 3.5 catheter. The right coronary system was accessed and visualized with a 5 Fr JR 4 catheter. The left ventricle was accessed and visualized with a 5 Fr Pigtail 145 (Angled) catheter. Left ventricular/Aortic Valve gradient assessed on pullback. Left ventriculogram was performed in VILLEDA projection. Closure device was deployed with a Fr TR Band without any complications. The patient tolerated the procedure well and there were no complications associated with the procedure. Vessel Analysis The patient's coronary anatomy is right dominant. The left main coronary artery is a large size vessel with diffuse calcification noted throughout this vessel and without significant stenosis. The left main bifurcates to the left anterior descending and circumflex. The left anterior descending artery is a medium size vessel with diffuse calcification noted throughout this vessel and without significant stenosis. There is a 30% stenosis in the mid segment. The first diagonal branch is a small size vessel with diffuse calcification noted throughout this vessel and without significant stenosis. The second diagonal branch is a small size vessel with diffuse calcification noted throughout this vessel and without significant stenosis. The circumflex artery is a large size vessel ectatic with slow flow. The first obtuse marginal branch is a medium size vessel with intimal irregularities and without significant stenosis. The second obtuse marginal branch is a large size vessel with diffuse calcification noted throughout this vessel and without significant stenosis. There is a 50% stenosis in the mid segment. The right coronary artery is a large size vessel with diffuse calcification noted throughout this vessel and without significant stenosis. ectatic RCA with slow flow There is a 40-50% stenosis in the distal segment. The right posterior descending artery is a small size vessel with diffuse calcification noted throughout this vessel and without significant stenosis. There is a 60-705% stenosis in the ostial segment. Left Ventricle The left ventricle is normal in size with normal contractility. The left ventricular ejection fraction is estimated to be 55-60%. The left ventricular end diastolic pressure is 12-14 mmHg. There was no gradient across the aortic valve upon pullback. Conclusion Non obstructive CAD R PDA Ostial 60-70% stenosis, small calbre vessel Ectatic RCA and circumflex with slow flow. Preserved LV Fx. Ef-55-60%, QDP05-04 mmof Hg Recommendations Aggressive Medical Therapy Baby Asa, ELISE/ARB, and statin Avoid rate limiting Ca Channel manoj and beta manoj b/c of base line bradycardia. Cc; Dr. Givens.
[2017-01-14 17:46] LABS: LYME IGM NEGATIVE (NEGATIVE)
[2017-01-14 17:53] LABS: LYME IGG NEGATIVE (NEGATIVE)
[2017-01-14] MEDS ORDERED: Bacitracin 500 Units/gm Oint Foilpak UD ONE (18:35)
--- NOTE | 2017-01-14 21:26 | CARD ---
APPROVED REPORT EKG Measurement Heart [id number] <Conclusion> Normal sinus rhythm Left axis deviation Right bundle branch block Abnormal ECG
[2017-01-14 23:24] VITALS: RESP 20
[2017-01-15 00:39] VITALS: TEMP 98.1
[2017-01-15 06:02] VITALS: O2SAT 97
[2017-01-15] MEDS: Pantoprazole 20 mg EC Tab PO SCH (06:26)
[2017-01-15 07:12] LABS: BASO # 0.03 K/mm3 (0.0-2.0); BASO % 0.5 % (0.0-3.0); EOS # 0.2 (0.0-0.7); GRAN # 3.58 (1.4-6.5); GRAN % 60.4 % (50.0-68.0); HEMATOCRIT 43.3 % (36.0-48.0); LYMPH # 1.5 (1.2-3.4); LYMPH % 25.3 % (22.0-35.0); MEAN CELL VOLUME 80.5 fl (80.0-105.0); MEAN CORPUSCULAR HEMOGLOBIN 27.3 pg (25.0-35.0); MEAN CORPUSCULAR HGB CONC 33.9 g/dl (31.0-37.0); MEAN PLATELET VOLUME 10.4 fl (7.0-11.0); MONO # 0.6 (0.1-0.6); MONO % 9.8 % (1.0-6.0); RED CELL DISTRIBUTION WIDTH 15.2 % (11.5-14.5); WHITE BLOOD COUNT 5.9 10^3/ul (4.5-11.0)
[2017-01-15 07:17] LABS: ALB/GLOB RATIO 1.3 (1.1-1.8); ALKALINE PHOSPHATASE 72 U/L (38-126); ALT/SGPT 35 U/L (7-56); AST/SGOT 44 U/L (14-36); BLOOD UREA NITROGEN 10 mg/dL (7-21); CALCIUM 9.5 mg/dL (8.4-10.5); CARBON DIOXIDE 28 mmol/L (21-33); CHLORIDE 104 mmol/L (98-107); GFR AFRICAN-AMERICAN > 60; GLUCOSE,RANDOM 79 mg/dL (70-110); MAGNESIUM 2.2 mg/dL (1.7-2.2); PHOSPHOROUS 3.5 mg/dL (2.5-4.5); POTASSIUM 4.5 mmol/L (3.6-5.0); SODIUM 140 mmol/L (132-148); TOTAL PROTEIN 6.9 g/dL (5.8-8.3)
--- NOTE | 2017-01-15 07:52 | CP.PCM.PN ---
Subjective - Date & Time of Evaluation Date of Evaluation: 01/15/17 Time of Evaluation: 07:44 - Subjective Subjective: Medicine Progress Note for Dr. Givens: Pt seen and examined at bedside. Objective - Vital Signs/Intake and Output Vital Signs (last 24 hours): Temp Pulse Resp BP Pulse Ox 98.1 F 50 L 20 160/73 H 97 01/15/17 06:00 01/15/17 06:00 01/15/17 06:00 01/15/17 06:00 01/15/17 06:00 Intake and Output: 01/15/17 01/15/17 06:59 18:59 Intake Total 120 Output Total 0 Balance 120 - Medications Medications: Current Medications Acetaminophen (Tylenol 325mg Tab) 650 mg PO Q6H PRN PRN Reason: Pain, Mild (1-3) Last Admin: 01/15/17 06:57 Dose: 650 mg Alprazolam (Xanax) 0.25 mg PO DAILY [facility] PRN Reason: Protocol Stop: 01/20/17 10:01 Last Admin: 01/14/17 10:40 Dose: Not Given Amlodipine Besylate (Norvasc) 10 mg PO DAILY [facility] Last Admin: 01/14/17 09:05 Dose: 10 mg Aspirin (Aspirin Chewable) 81 mg PO DAILY [facility] Last Admin: 01/14/17 09:05 Dose: 81 mg Atorvastatin Calcium (Lipitor) 40 mg PO DIN [facility] Last Admin: 01/14/17 17:07 Dose: 40 mg Ergocalciferol (Drisdol 50,000 Intl Units Cap) 1 cap PO MON [facility] Last Admin: 01/11/17 21:59 Dose: 1 cap Hydralazine HCl (Apresoline) 10 mg PO QID PRN PRN Reason: for sbp>170 Last Admin: 01/14/17 22:49 Dose: 10 mg Hydrochlorothiazide (Microzide) 12.5 mg PO DAILY [facility] Last Admin: 01/14/17 10:41 Dose: Not Given Losartan Potassium (Cozaar) 100 mg PO DAILY [facility] Last Admin: 01/14/17 09:05 Dose: 100 mg Pantoprazole Sodium (Protonix Ec Tab) 20 mg PO 0600,1600 [facility] Last Admin: 01/15/17 06:26 Dose: 20 mg Polyethylene Glycol (Miralax) 17 gm PO BID [facility] Last Admin: 01/14/17 17:07 Dose: 17 gm Spironolactone (Aldactone) 25 mg PO DAILY [facility] Last Admin: 01/14/17 10:40 Dose: Not Given - Labs Labs: 01/15/17 06:50 01/15/17 06:50 PT 11.7 Seconds (9.9-11.8) 01/11/17 22:05 INR 1.08 (0.93-1.08) 01/11/17 22:05 APTT 27.2 Seconds (23.7-30.8) 01/11/17 22:05 Assessment and Plan - Assessment and Plan (Free Text) Assessment: 81 yo F with PMHx of HTN, bradycardia, palpatations, and RBBB presented with elevated BP and dizziness will be evaluated and treated for hypertensive urgency and symptomatic bradycardia. Plan: 1. Uncontrolled HTN, stable - 142/82 today - Norvasc 10 mg PO daily - Cozaar 100 mg PO daily - HCTZ 12.5 mg PO daily - Hydralazine 10 mg PO BID 2. Symptomatic Bradycardia - Cardiology Consulted Abnormal stress test Cardiac cath showed R PDA 60-70%, RCA and circumflex shows slow flow, LVEF 55-60% Avoid BB and CCB - EKG shows heart rate of 48, irregular rhythm, and RBBB; No AV block - CT head negative - Troponin negative x3 - UA, TSH, Lipid panel WNL - Lyme IgG, IgM negative - C/w ASA 3. Anxiety - Xanax 0.25 mg PO daily 4. H/O Dyslipidemia - C/w Lipitor GI/DVT PPx - Lovenox - Protonix Pt seen and discussed in detail with Dr. Givens. Hernan Kenney, PGY1
--- NOTE | 2017-01-15 08:05 | PN ---
ADDENDUM REASON FOR ADDENDUM: The patient underwent cardiac catheterization and then the patient underwent Holter also. Cardiac catheterization revealed a nonobstructive coronary artery disease limited only to RPDA 60% to 70% small caliber vessels, preserved LV function, but ectatic right coronary artery and ectatic circumflex noted. Mild disease noted in LAD, [id number] disease in OM2, preserved LV function. Recommendation is to continue baby aspirin, continue atorvastatin, continue ELISE to ARB, avoid rate limiting calcium channel manoj and beta manoj because of baseline bradycardia. The patient underwent Holter monitor that shows the lowest heart rate was 37 at 6:00 a.m. when the patient was sleeping, average heart rate was 51, maximum heart rate 115. No evidence of chronotropic incompetence. At this point, the patient does not need pacemaker, but we will keep an eye. Discussed with the patient's family that the patient may need pacemaker in future if becomes symptomatic bradycardia but right now, the patient is bradycardic but asymptomatic and has been bradycardic for last 2 years. Last time, the patient came to see me was more than 2 years ago for cataract surgery, at that time, the patient was also bradycardic. Since the patient is asymptomatic, does not need pacemaker, but definitely beta manoj should be avoided as well as calcium channel manoj rate limiting should be avoided as mentioned above. We will monitor and repeat Holter in 3 to 6 months or if the patient is symptomatic, consider pacemaker, otherwise at this point, the patient does not need pacemaker. Thank you Dr. Givens for providing us the opportunity in taking care of the patient. Cori Cloud MD
[2017-01-15] MEDS: POLYETHYLENE GLYCOL 3350 17 GM/Dose PACKET PO SCH (09:49)
[2017-01-15 09:52] VITALS: BP 137/70; PULSE 64
--- NOTE | 2017-01-15 10:39 | PN ---
DATE: 01/15/2017 REASON FOR CONSULTATION: Chest pain, bradycardia, status post cardiac catheterization, status post Holter. SUBJECTIVE: The patient is sitting on the chair. She denies any chest pain, shortness of breath, or any palpitation. Denies any dizziness. OBJECTIVE: GENERAL: Sitting in chair, not in apparent distress. Heart rate 50s. VITAL SIGNS: Temperature afebrile, heart rate 52, and blood pressure 154/73. HEENT: PERRLA intact. NECK: Supple. No carotid bruit or thyromegaly. CHEST: Clear to auscultation. HEART: S1 and S2 regular. ABDOMEN: Soft. EXTREMITIES: Clubbing and cyanosis negative. LABORATORY DATA: Blood workup as follows; WBC is 5.8, hemoglobin , hematocrit 43.3, and platelet count 191. Chemistry shows sodium 140, potassium 4.5, chloride 104, carbon dioxide 28, anion gap of 13, BUN 10, and creatinine 0.7. IMPRESSION: Chest pain, abnormal stress test, status post cardiac catheterization, and nonobstructive coronary artery disease. The patient's Holter monitor for 24 hours that shows lowest heart rate 37 at 6:00 a.m. when the patient was sleeping. No evidence of chronotropic incompetence noted at this time. Cardiac catheterization revealed nonobstructive coronary artery disease. Echocardiogram showed normal left ventricular size, borderline left ventricular hypertrophy, ejection fraction 65%, trace mitral regurgitation, trace tricuspid regurgitation, right ventricular systolic pressure of 34, hypertension, and hyperlipidemia. RECOMMENDATIONS: Continue hydralazine p.r.n., continue spironolactone, continue atorvastatin, continue hydrochlorothiazide, continue amlodipine, and losartan. If the pressure remains elevated, we will put 25 b.i.d. hydralazine. No further cardiac workup is planned, stable. The patient can be discharge today from cardiology point of view. I discussed with the daughter 2 hour that at this point the patient does not need pacemaker, but in future, there is a chance that the patient may need pacemaker, if she get symptomatic or dizziness bring to the emergency room and close follow up with you. Thank you Dr. Givens for providing me the opportunity in taking care of the patient, Kevin Mliler. Cori Cloud MD
--- NOTE | 2017-01-15 13:27 | CP.PCM.DIS ---
Provider - Provider Date of Admission: 01/13/17 14:32 Attending physician: Anish Givens MD Primary care physician: Anish Givens MD Consults: Cardio: Pedro Luis Time Spent in preparation of Discharge (in minutes): 45 Hospital Course - Lab Results Lab Results: Most Recent Lab Values WBC 5.9 10^3/ul (4.5-11.0) 01/15/17 06:50 RBC 5.38 10^6/uL (3.5-6.1) 01/15/17 06:50 Hgb 14.7 g/dL (12.0-16.0) 01/15/17 06:50 Hct 43.3 % (36.0-48.0) 01/15/17 06:50 MCV 80.5 fl (80.0-105.0) 01/15/17 06:50 MCH 27.3 pg (25.0-35.0) 01/15/17 06:50 MCHC 33.9 g/dl (31.0-37.0) 01/15/17 06:50 RDW 15.2 % (11.5-14.5) H 01/15/17 06:50 Plt Count 191 10^3/uL (120.0-450.0) 01/15/17 06:50 MPV 10.4 fl (7.0-11.0) 01/15/17 06:50 Gran % 60.4 % (50.0-68.0) 01/15/17 06:50 Lymph % (Auto) 25.3 % (22.0-35.0) 01/15/17 06:50 [place] % (Auto) 9.8 % (1.0-6.0) H 01/15/17 06:50 Eos % (Auto) 4.0 % (1.5-5.0) 01/15/17 06:50 Baso % (Auto) 0.5 % (0.0-3.0) 01/15/17 06:50 Gran # 3.58 (1.4-6.5) 01/15/17 06:50 Lymph # 1.5 (1.2-3.4) 01/15/17 06:50 [place] # 0.6 (0.1-0.6) 01/15/17 06:50 Eos # 0.2 (0.0-0.7) 01/15/17 06:50 Baso # 0.03 K/mm3 (0.0-2.0) 01/15/17 06:50 PT 11.7 Seconds (9.9-11.8) 01/11/17 22:05 INR 1.08 (0.93-1.08) 01/11/17 22:05 APTT 27.2 Seconds (23.7-30.8) 01/11/17 22:05 Sodium 140 mmol/L (132-148) 01/15/17 06:50 Potassium 4.5 mmol/L (3.6-5.0) 01/15/17 06:50 Chloride 104 mmol/L (98-107) 01/15/17 06:50 Carbon Dioxide 28 mmol/L (21-33) 01/15/17 06:50 Anion Gap 13 (10-20) 01/15/17 06:50 BUN 10 mg/dL (7-21) 01/15/17 06:50 Creatinine 0.7 mg/dL (0.7-1.2) 01/15/17 06:50 Est GFR ( Amer) > 60 01/15/17 06:50 Est GFR (Non-Af Amer) > 60 01/15/17 06:50 Random Glucose 79 mg/dL (70-110) 01/15/17 06:50 Calcium 9.5 mg/dL (8.4-10.5) 01/15/17 06:50 Phosphorus 3.5 mg/dL (2.5-4.5) 01/15/17 06:50 Magnesium 2.2 mg/dL (1.7-2.2) 01/15/17 06:50 Total Bilirubin 1.0 mg/dL (0.2-1.3) 01/15/17 06:50 Direct Bilirubin 0.3 mg/dL (0.0-0.4) 01/13/17 13:00 AST 44 U/L (14-36) H D 01/15/17 06:50 ALT 35 U/L (7-56) 01/15/17 06:50 Alkaline Phosphatase 72 U/L (38-126) 01/15/17 06:50 Lactate Dehydrogenase 620 U/L (333-699) 01/11/17 16:00 Total Creatine Kinase 75 U/L (35-230) 01/12/17 04:05 Troponin I < 0.01 ng/mL 01/12/17 04:05 Total Protein 6.9 g/dL (5.8-8.3) 01/15/17 06:50 Albumin 3.9 g/dL (3.0-4.8) 01/15/17 06:50 Globulin 3.0 gm/dL 01/15/17 06:50 Albumin/Globulin Ratio 1.3 (1.1-1.8) 01/15/17 06:50 Triglycerides 89 mg/dL (35-160) 01/11/17 17:00 Cholesterol 174 mg/dL (130-200) 01/11/17 17:00 LDL Cholesterol Direct 86 mg/dL (0-129) 01/11/17 17:00 HDL Cholesterol 57 mg/dL (29-60) 01/11/17 17:00 Free T4 0.94 ng/dL (0.78-2.19) 01/11/17 17:00 Thyroxine (T4) 9.4 ug/dL (5.5-11.0) 01/11/17 17:00 TSH 3rd Generation 1.64 mIU/mL (0.46-4.68) 01/11/17 17:00 Urine Color Light yellow (YELLOW) 01/11/17 16:25 Urine Appearance Clear (CLEAR) 01/11/17 16:25 Urine pH 6.0 (4.7-8.0) 01/11/17 16:25 Ur Specific [place] 1.010 (1.005-1.035) 01/11/17 16:25 Urine Protein Negative mg/dL (<30 mg/dL) 01/11/17 16:25 Urine Glucose (UA) Negative mg/dL (NEGATIVE) 01/11/17 16:25 Urine Ketones Negative mg/dL (NEGATIVE) 01/11/17 16:25 Urine Blood Negative (NEGATIVE) 01/11/17 16:25 Urine Nitrate Negative (NEGATIVE) 01/11/17 16:25 Urine Bilirubin Negative (NEGATIVE) 01/11/17 16:25 Urine Urobilinogen 0.2 E.U./dL (<1 E.U./dL) 01/11/17 16:25 Ur Leukocyte Esterase Negative Shar/uL (NEGATIVE) 01/11/17 16:25 Lyme Disease IgG Ab (IFA) Negative (NEGATIVE) 01/11/17 21:30 Lyme Disease IgM Ab Negative (NEGATIVE) 01/11/17 21:30 - Hospital Course Hospital Course: Pt is an 81 yo female with PMHx of HTN, bradycardia, palpatations, and RBBB presented to [facility] with complaints of RUSSO, elevated BP at home with SBP >200, and dizziness. Pt took her home medication, Losartan, in attempts to lower her BP. However, her BP remained elevated. Pt reports that her HR is normal between 50-60. Pt denied CP, SOB, vomiting, diarrhea, tinnitus, hearing loss, abdominal pain, chills, or fever. In the ED, labs and imaging were obtained. EKG showed marked bradycardia and RBBB. Head CT and CXR were normal. Labs were unremarkable. Pt was admitted for evaluation and treatment for symptomatic bradycardia and uncontrolled HTN. On admission, patient had occasional mild anxiety which was managed with Xanax. Cardio was consulted and recommended stress test, echo, and holter monitor. In addition, Norvasc and HCTZ was added to her Losartan to control HTN. Holter monitor ordered to assess the need of pacemaker, which showed sinus rhythm, predominantly bradycardia with few APC's. Echo showed borderline concentric LVH, LVEF 65%, trace MR, and trace TR. Pt underwent stress test, which showed possible abnormal perfusion and apical defect. However, stress test negative for CP or ST-elevation. Based on the results from the stress test, pt was underwent cardiac catherization, which showed non-obstructive CAD, R PDA ostial 60-70% stenosis, slow flow of the RCA and circumflex, preserved LVEF of 55-60%. During hospital course, patient continued improve, HTN was controlled, and showed no signs of symptomatic bradycardia. Today, pt was seen and examined at bedside. Pt denied any acute overnight events. Pt denied CP, SOB, n/v/d, chills, fever, abdominal pain, RUSSO, dizziness, fatigue, or dysuria. Cardiology determined that no further work up needed to be done from their standpoint and would be clear for discharge. Pt was advised to take medications as prescribed, follow up as an outpatient, and return to ED if symptoms worsen. Discharge Exam - Head Exam Head Exam: ATRAUMATIC, NORMOCEPHALIC - Eye Exam Eye Exam: EOMI, PERRL - ENT Exam ENT Exam: Mucous Membranes Moist - Neck Exam Neck exam: Full Rom - Respiratory Exam Respiratory Exam: Clear to PA & Lateral. absent: Rales, Rhonchi, Wheezes - Cardiovascular Exam Cardiovascular Exam: Bradycardia, REGULAR RHYTHM, +S1, +S2. absent: Diastolic murmur, Gallop, Rubs, Systolic Murmur - GI/Abdominal Exam GI & Abdominal Exam: Soft. absent: Distended, Guarding, Rebound, Tenderness - Extremities Exam Extremities exam: normal inspection - Neurological Exam Neurological exam: Alert, CN II-XII Intact, Normal Gait, Oriented x3 - Psychiatric Exam Psychiatric exam: Normal Affect, Normal Mood - Skin Skin Exam: Dry, Intact, Normal Color, Warm Discharge Plan - Discharge Medications Prescriptions: Atorvastatin [Lipitor] 40 mg PO DIN #30 tab Losartan/Hydrochlorothiazide [Hyzaar 25 mg-100 mg] 1 tab PO DAILY #30 tab NIFEdipine ER [Nifedipine ER] 60 mg PO DAILY #30 ter Polyethylene Glycol 3350 [Miralax] 17 gm PO BID #60 packet - Follow Up Plan Condition: STABLE Disposition: HOME/ ROUTINE Instructions: Coronary Artery Disease (GEN), Heart Healthy Diet (GEN), Cholesterol and Your Health (GEN), Meal Planning with Diabetes Exchanges (GEN), Bradycardia (GEN), Hypertensive Crisis (GEN) Additional Instructions: DISCHARGE HOME FOLLOW UP WITHIN 1 WEEK DISCHARGE MEDS PER UPDATED AMBULATORY ORDERS AND NEW SCRIPTS COPY OF DIET TO PATIENT/ FAMILY UPON DISCHARGE. Discharge instructions: please follow the s/p cardiac catherization discharge instructions. If condition occurs again, go to the nearest emergency room. Diet: Heart healthy, low cholesterol and diabetic exchange menu Referrals: Anish Givens MD [Primary Care Provider] - 1 Week (DISCHARGE HOME FOLLOW UP WITHIN 1 WEEK DISCHARGE MEDS PER UPDATED AMBULATORY ORDERS AND NEW SCRIPTS COPY OF DIET TO PATIENT/ FAMILY UPON DISCHARGE.)
--- NOTE | 2017-01-16 11:33 | DS ---
FINAL PROGRESS NOTE/DISCHARGE SUMMARY The patient is seen in room 272, bed 1. PHYSICAL EXAMINATION: GENERAL: The patient is in no distress noted. VITAL SIGNS: T-max 98.1. Telemetry shows sinus bradycardia, heart rate in the 40s and 50s. Blood pressure 160/73, 154/73, 172/79, respirations 20, O2 sat 97%. HEAD: Examination normocephalic and atraumatic. HEENT: Examination shows pinkish pale conjunctivae. Anicteric sclerae. No oropharyngeal lesion. NECK: No neck rigidity. CHEST: Examination kyphosis. LUNGS: Examination shows no rales, crackles, or wheezing. CARDIOVASCULAR: Shows S1, S2, regular rhythm. Questionable soft systolic murmur, right second intercostal space left sternal border, left second intercostal space. ABDOMEN: Soft. Positive bowel sound. GENITALIA: Female. RECTAL: Examination deferred. EXTREMITIES: Shows no pitting edema, no calf tenderness, no Homans sign. NEUROLOGIC: The patient is alert, awake, responsive, is able to move upper and lower extremity without assistance. Gait examination is deferred. The patient is seen sitting up in the chair. The patient is alert, awake, responsive. Motor strength is 5/5 upper and lower extremity. Gait examination is not tested. VASCULAR: Examination palpate pulses. Body mass index at 31. DIAGNOSTICS: January 15, WBC 5.9, hemoglobin/hematocrit 14.7/43.3, platelets 191. Sodium 140, potassium 4.5, chloride 104, CO2 of 28, anion gap 13, BUN 10, creatinine 0.7, GFR greater than 60, glucose 79, calcium 9.5, phosphorus 3.5, magnesium 2.2. LFTs shows AST of 44. Urinalysis negative. Lyme antibody is negative. Urine cultures negative. Cardiac catheterization noted and explained to the patient's daughter. Holter monitored noted. FINAL IMPRESSION, PLAN, AND DISCHARGE DIAGNOSES: 1. Uncontrolled hypertension versus hypertensive urgency, emergency. 2. Severe symptomatic bradycardia. 3. Left axis deviation and right bundle-branch block. 4. Status post cardiac catheterization with right dominant circulation. 5. 30% stenosis of the mid left anterior descending artery. 6. 50% stenosis of the mid obtuse marginal, the two branch. 7. 40-50% stenosis of the distal ectatic RCA (right coronary artery) with slow flow. 8. 60-70% stenosis of the ostium of the right posterior descending artery with small vessel and diffuse calcification. 9. Left ventricular ejection fraction of 55-60%. 10. Right posterior descending artery 60-70% stenosis, small caliber vessel. 11. Sinus bradycardia. 12. Left ventricular ejection fraction of 66%. 13. Borderline concentric left ventricular hypertrophy with grade 3 reversible restrictive diastolic dysfunction. 14. Borderline dilated left and right atrium. 15. Thickened aortic valve. 16. Thickened mitral valve with trace mitral regurgitation and moderate mitral annular calcification. 17. Thickened tricuspid valve with mild tricuspid regurgitation. 18. Uncontrolled hypertension. 19. Bradycardia. 20. Hypercholesterolemia with elevated LDL. PLAN: At this time, the patient is cleared by cardiology at discharge. The patient as follows aspirin 81 mg daily, Lipitor 40 mg daily, Drisdol 50,000 weekly. The patient is started on Hyzaar 25-100 daily, Procardia XL 60 mg daily, MiraLax 17 g twice a day. The patient is discharged home. The patient is to be followed up with Dr. Givens within 1 week. Discharge medications as per ambulatory orders, which are transmitted to the pharmacy and also new prescription given to the patient and the patient's daughter . During this hospitalization, the patient's daughter was explained about the patient's condition, diagnosis, test results, recommendation at length and all questions concerned answered, which they acknowledged understand. Dictated and electronically signed, not read. Signing off, Anish Givens MD. Anish Givens MD
== END 2017-01-15 11:14 | disposition home or self-care (01) | DRG 125 ==
LOC: ED 15:01 → ERH 20:15 → 2RNO 21:54 → OBSVTOIN 01-13 14:32 → 2RSO 01-14 16:16
PROVIDERS: ADMIT Internal Medicine; ATTEND Internal Medicine
PROC: 4A023N7 Measurement of Cardiac Sampling and Pressure, Left Heart, Percutaneous Approach (ICD-10-PCS; principal; 2017-01-14)
PROC: B2151ZZ Fluoroscopy of Left Heart using Low Osmolar Contrast (ICD-10-PCS; 2017-01-14)
PROC: B2111ZZ Fluoroscopy of Multiple Coronary Arteries using Low Osmolar Contrast (ICD-10-PCS; 2017-01-14)
DX: I16.0 Hypertensive urgency (principal); I08.1 Rheumatic disorders of both mitral and tricuspid valves; I37.1 Nonrheumatic pulmonary valve insufficiency; I25.10 Atherosclerotic heart disease of native coronary artery without angina pectoris; E11.9 Type 2 diabetes mellitus without complications; R00.1 Bradycardia, unspecified; I45.10 Unspecified right bundle-branch block; F41.9 Anxiety disorder, unspecified; E55.9 Vitamin D deficiency, unspecified; E78.00 Pure hypercholesterolemia, unspecified; Z79.82 Long term (current) use of aspirin

== ENCOUNTER 2017-11-13 21:59 | Inpatient (IN) | payer OTHER ==
[2017-11-13] MEDS ORDERED: Morphine 4 mg/ml ISec IVP STA (22:43)
--- NOTE | 2017-11-13 22:48 | ED PDOC ---
Arrival/HPI - General Historian: Patient, Family (daughter) - History of Present Illness Time/Duration: Other (see hpi) Context: Home <Nieves Angela - Last Filed: 11/14/17 14:24> <Ian Greene - Last Filed: 11/14/17 19:17> - General Chief Complaint: Back Pain Time Seen by Provider: 11/13/17 22:26 - History of Present Illness Narrative History of Present Illness (Text): 11/13/17 22:45 Information take from daughter who offered to interpret. This 82 yo female with pmh HTN, and hyperthyroidism, presents to this ED c/o right posterior chest pain x 2 days. Patient stated pain is constant. Patient took Advil with minimum relief of symptoms. Patient denies sob, abdominal pain, wheezing, or abnormal gait. (Nieves Angela) Past Medical History - Provider Review Nursing Documentation Reviewed: Yes - Infectious Disease Hx of Infectious Diseases: None - Cardiac Hx Hypertension: Yes - Endocrine/Metabolic Hx Diabetes Mellitus Type 2: Yes - Musculoskeletal/Rheumatological Hx Falls: No - Psychiatric Hx Substance Use: No - Past Surgical History Past Surgical History: No Previous - Anesthesia Hx Anesthesia: Yes Hx Anesthesia Reactions: No Hx Malignant Hyperthermia: No - Suicidal Assessment Feels Threatened In Home Enviroment: No <Nieves Angela - Last Filed: 11/14/17 14:24> Family/Social History - Physician Review Nursing Documentation Reviewed: Yes Family/Social History: Other (noncontributory) Smoking Status: Former Smoker Hx Alcohol Use: No Hx Substance Use: No Hx Substance Use Treatment: No <Nieves Angela - Last Filed: 11/14/17 14:24> Allergies/Home Meds <Nieves Angela - Last Filed: 11/14/17 14:24> <Ian Greene - Last Filed: 11/14/17 19:17> Allergies/Adverse Reactions: Allergies No Known Allergies Allergy (Verified 08/18/14 00:47) Home Medications: Home Meds Medication Instructions Recorded Confirmed Aspirin [Aspirin Chewable] 81 mg PO DAILY 08/18/14 11/13/17 Ergocalciferol [Drisdol 50,000 1 tab PO Q7D 01/11/17 11/13/17 Intl Units Cap] methIMAzole [Tapazole] 5 mg PO BID 11/13/17 11/13/17 Review of Systems - Review of Systems Constitutional: Normal. absent: Fatigue, Weight Change, Fevers Eyes: Normal ENT: Normal Respiratory: Normal. absent: SOB, Cough Cardiovascular: Other (see hpi). absent: Palpitations, Edema, Calf Pain, PERAZA, Orthopnea, Syncope Gastrointestinal: Normal. absent: Abdominal Pain, Nausea, Vomiting Genitourinary Female: Normal. absent: Dysuria, Frequency, Hematuria Musculoskeletal: Other (see hpi) Skin: Normal Neurological: Normal. absent: Headache, Dizziness, Focal Weakness, Gait Changes , Speech Changes Endocrine: Normal Hemo/Lymphatic: Normal Psychiatric: Normal <Angela,Nahim P - Last Filed: 11/14/17 14:24> Physical Exam Temperature: Afebrile Blood Pressure: Normal Pulse: Regular Respiratory Rate: Normal Appearance: Positive for: Well-Appearing, Non-Toxic, Comfortable Pain Distress: None Mental Status: Positive for: Alert and Oriented X 3 - Systems Exam Head: Present: Atraumatic, Normocephalic Pupils: Present: PERRL Extroacular Muscles: Present: EOMI Conjunctiva: Present: Normal Mouth: Present: Moist Mucous Membranes Neck: Present: Normal Range of Motion, Trachea Midline. No: Meningeal Signs, MIDLINE TENDERNESS, Paraspinal Tenderness, Lymphadenopathy Respiratory/Chest: Present: Clear to Auscultation, Good Air Exchange. No: Respiratory Distress, Accessory Muscle Use, Wheezes, Decreased Breath Sounds, Rales, Retracting, Rhonchi, Tachypneic, Tender to Palpation Cardiovascular: Present: Regular Rate and Rhythm, Normal S1, S2. No: Murmurs Abdomen: No: Tenderness, Distention, Peritoneal Signs, Rebound, Guarding Back: Present: Normal Inspection. No: CVA Tenderness Upper Extremity: Present: Normal Inspection. No: Cyanosis, Edema Lower Extremity: Present: Normal Inspection. No: Edema Neurological: Present: GCS=15, CN II-XII Intact, Speech Normal Skin: Present: Warm, Dry, Normal Color. No: Rashes Psychiatric: Present: Alert, Oriented x 3, Normal Insight, Normal Concentration <Angela,Nahim P - Last Filed: 11/14/17 14:24> Vital Signs Temp Pulse Resp BP Pulse Ox 11/14/17 02:00 81 19 147/80 97 11/13/17 22:33 97.9 F 87 16 154/78 H 99 Medical Decision Making Reassessment Condition: Re-examined, Improving,but remains with symptoms - Lab Interpretations I have reviewed the lab results: Yes Interpretation: Abnormal lab values - EKG Interpretation Interpreted by ED Physician: Yes (NSR@ 61 bpm. RBBB. T-wave abnormality, consider inferolateral ischemia. ) Type: 12 lead EKG Comparison: Different from prev. EKG <Nieves Angela - Last Filed: 11/14/17 14:24> <Ian Greene - Last Filed: 11/14/17 19:17> ED Course and Treatment: 11/14/17 02:[address] Tapia regarding elevated Troponin, abnormal EKG with t-wave inversion on lateral leads. Patient c/o right posterior chest pain. Dr. Greene spoke with Dr. Lara who recommended ICU admission. Dr. tapia requested to speak with Dr. Greene. I transferred the call. (Nieves Angela P) - Lab Interpretations Lab Results: 11/13/17 23:40 11/13/17 23:40 Lab Results 11/13/17 23:40: Sodium 144, Potassium 3.8, Chloride 108 H, Carbon Dioxide 27, Anion Gap 13, BUN 11, Creatinine 0.5 L, Est GFR ( Amer) > 60, Est GFR ( Non-Af Amer) > 60, Random Glucose 92, Calcium 9.5, Total Bilirubin 0.4, AST 43 H , ALT 38, Alkaline Phosphatase 116, Lactate Dehydrogenase 472, Total Creatine Kinase 77, Troponin I 0.31 H* D, Total Protein 6.5, Albumin 3.5, Globulin 2.9, Albumin/Globulin Ratio 1.2, Amylase 74, Lipase 41 11/13/17 23:40: PT 11.5, INR 1.01, APTT 29.6 11/13/17 23:40: WBC 7.1 D, RBC 4.93, Hgb 12.0 D, Hct 36.3, MCV 73.6 L D, MCH 24.3 L, MCHC 33.1, RDW 16.1 H, Plt Count 239, MPV 11.1 H, Gran % 57.8, Lymph % ( Auto) 29.3, [place] % (Auto) 10.0 H, Eos % (Auto) 2.8, Baso % (Auto) 0.1, Gran # 4.08, Lymph # (Auto) 2.1, [place] # (Auto) 0.7 H, Eos # (Auto) 0.2, Baso # (Auto) 0.01 - RAD Interpretation Narrative RAD Interpretations (Text): 11/13/17 23:52 FINDINGS: Liver: No intrahepatic bile duct dilation. Gallbladder: Unremarkable. No gallstones. Common bile duct: The CBD is dilated, measuring 1.1 cm. No stones. Pancreas: Pancreas evaluation is limited. Kidneys: Unremarkable. No stones. No solid mass. No hydronephrosis. Spleen: Unremarkable. No splenomegaly. IMPRESSION: The CBD is dilated, measuring 1.1 cm. 11/13/17 23:53 CXR: NAD (AngelaNahclarisa P) EXAM: CT Angiography Chest With and without Intravenous Contrast CT Angiography Abdomen and Pelvis With Intravenous Contrast Dictated and Authenticated by: Tiera Willis MD 11/14/2017 5:54 AM IMPRESSION: 1. Mild parabronchial cuffing, with hazy infiltration in the right mid lobe lingula and bilateral lung bases which can be seen with bronchitis, reactive airway disease or viral pneumonitis versus mild failure. 2. No CT evidence for pulmonary embolus. No acute vascular abnormality. (Ian Greene) Radiology Orders: 11/13/17 22:42 ABDOMEN COMPLETE [US] Stat 11/13/17 22:44 CHEST PORTABLE [RAD] Stat - Medication Orders Current Medication Orders: Aspirin (Ecotrin) 81 mg PO DAILY [facility] Last Admin: 11/14/17 10:13 Dose: 81 mg Atorvastatin Calcium (Lipitor) 10 mg PO DIN [facility] Last Admin: 11/14/17 17:00 Dose: 10 mg Heparin Sodium/Sodium Chloride (Heparin 15311 Units/250ml 1/2 Normal Saline) 25 ,000 units in 250 mls @ 7.882 mls/hr IV .Q24H SCOTTIE; 12 UNITS/KG/HR PRN Reason: Protocol Last Titration: 11/14/17 15:55 Dose: 9 units/kg/hr, 5.911 mls/hr Titration Intervention Document 11/14/17 15:55 LUDIN (Rec: 11/14/17 16:05 LUDIN [id number]) Titration Intake Titration Intake 0 Cumulative Intake 56 Cumulative Intake (Rx) 56 Waste Amount 0 Container Volume 194 Titration Dosing Titration Dose 9 IV Rate 5.911 Intake/Decrease Resumed/Decreased Cumulative Dose 5600 Methimazole (Tapazole) 5 mg PO BID [facility] Last Admin: 11/14/17 17:00 Dose: 5 mg Pantoprazole Sodium (Protonix Inj) 40 mg IVP DAILY [facility] Last Admin: 11/14/17 10:13 Dose: 40 mg IVP Administration Document 11/14/17 10:13 RAMOM (Rec: 11/14/17 10:13 RAMOM [facility] [id number] Charges for Administration # of IVP Administrations 1 Discontinued Medications Aspirin (Aspirin) 325 mg PO STAT STA Stop: 11/14/17 02:00 Last Admin: 11/14/17 04:44 Dose: 325 mg Clopidogrel Bisulfate (Plavix) 75 mg PO STAT STA Stop: 11/14/17 02:07 Last Admin: 11/14/17 06:45 Dose: 75 mg Heparin Sodium (Porcine) (Heparin) 4,600 units IV ONCE ONE PRN Reason: Protocol Stop: 11/14/17 05:55 Last Admin: 11/14/17 07:00 Dose: 4,600 units eMAR Start Stop Document 11/14/17 07:00 MPD (Rec: 11/14/17 07:51 MPD [id number]) Intravenous Solution Start Date 11/14/17 Start Time 07:00 End Date 11/14/17 End time 07:01 Total Infusion Time 1 Morphine Sulfate (Morphine) 2 mg IVP STAT STA Stop: 11/13/17 22:44 Last Admin: 11/13/17 23:40 Dose: 2 mg MAR Pain Assessment Document 11/13/17 23:40 JOL (Rec: 11/14/17 00:18 JOL [id number]) Pain Reassessment Is this a pain reassessment? No Sleep Is patient sleeping during reassessment? No Presence of Pain Presence of Pain Yes Pain Scale Used Pain Scale Used Numeric Location Left, Right or Bilateral Right Upper or Lower Upper Pain Location Body Site Back Description Intensity of Pain at present 10 Pain Behavior Moaning Restlessness Facial Grimacing Aggravating Factors ADL's Changing Position Alleviating Factors/Management Medication Techniques IVP Administration Document 11/13/17 23:40 JOL (Rec: 11/14/17 00:18 JO [id number]) Charges for Administration # of IVP Administrations 1 Ondansetron HCl (Zofran Inj) 4 mg IVP STAT STA Stop: 11/13/17 23:15 Last Admin: 11/13/17 23:40 Dose: 4 mg IVP Administration Document 11/13/17 23:40 JOArturo (Rec: 11/14/17 00:18 JO [id number]) Charges for Administration # of IVP Administrations 1 Disposition/Present on Arrival - Present on Arrival Any Indicators Present on Arrival: No History of DVT/PE: No History of Uncontrolled Diabetes: No Urinary Catheter: No History of Decub. Ulcer: No History Surgical Site Infection Following: None - Disposition Have Diagnosis and Disposition been Completed?: Yes Disposition Time: 02:05 <Nieves Angela - Last Filed: 11/14/17 14:24> <Ian Greene - Last Filed: 11/14/17 19:17> - Disposition Diagnosis: Chest pain, T wave inversion in EKG, Elevated troponin Disposition: HOSPITALIZED Patient Problems: Current Active Problems Problem Status Onset Chest pain Acute Elevated troponin Acute T wave inversion in EKG Acute Condition: STABLE Critical Care Time - Critical Care Note Total Time (in mins): 45 Documented critical care: time excludes all time spent performing seperately billable procedures. <Ian Greene - Last Filed: 11/14/17 19:17>
[2017-11-14 00:43] LABS: BASO # 0.01 K/mm3 (0.0-2.0); BASO % 0.1 % (0.0-3.0); EOS # 0.2 (0.0-0.7); EOS % 2.8 % (1.5-5.0); GRAN # 4.08 (1.4-6.5); GRAN % 57.8 % (50.0-68.0); LYMPH # 2.1 (1.2-3.4); LYMPH % 29.3 % (22.0-35.0); MEAN CELL VOLUME 73.6 fl (80.0-105.0); MEAN CORPUSCULAR HEMOGLOBIN 24.3 pg (25.0-35.0); MEAN CORPUSCULAR HGB CONC 33.1 g/dl (31.0-37.0); MEAN PLATELET VOLUME 11.1 fl (7.0-11.0); MONO # 0.7 (0.1-0.6); RBC 4.93 10^6/uL (3.5-6.1); RED CELL DISTRIBUTION WIDTH 16.1 % (11.5-14.5); WHITE BLOOD COUNT 7.1 10^3/ul (4.5-11.0)
[2017-11-14 00:48] LABS: INR 1.01; PROTHROMBIN TIME 11.5 SECONDS (9.4-12.5)
[2017-11-14 00:52] LABS: PARTIAL THROMBOPLASTIN TIME 29.6 Seconds (25.1-36.5)
[2017-11-14 01:22] LABS: ALB/GLOB RATIO 1.2 (1.1-1.8); ALBUMIN 3.5 g/dL (3.0-4.8); ALT/SGPT 38 U/L (7-56); AMYLASE 74 U/L (35-125); AST/SGOT 43 U/L (14-36); BLOOD UREA NITROGEN 11 mg/dL (7-21); CALCIUM 9.5 mg/dL (8.4-10.5); GFR AFRICAN-AMERICAN > 60; GFR NON-AFRICAN AMERICAN > 60; LIPASE 41 U/L (23-300)
[2017-11-14 02:02] LABS: TROPONIN I 0.31 ng/mL
--- NOTE | 2017-11-14 02:25 | CP.PCM.CON ---
<Sean Jhaevri - Last Filed: 11/14/17 03:19> History of Present Illness - History of Present Illness History of Present Illness: PATIENT WILL NOT ACCEPT BLOOD PRODUCTS DUE TO NONDENOMINATIONAL BELIFES Sean Jhaveri Internal Medicine Resident- ICU Consult Note Subjective: CC: Chest Pain HPI: Patient is a 82 year old female with a past medical history of hypertension, sustained bradycardia, RBBB, hyperthyroidism, palpitations, and questionable DM who presented to the emergency department for evaluation and treatment of chest pain. Patient's daughter and son are at bedside and provided translation as patient speaks creole. As per translation, the patient began experiencing right sided chest pain on with no specific provoking event. Pain originated near the right inferior sternal border and radiates to the right flank/right thoracolumbar region of the back. Pain is characterized as a burning sensation and is rated a 10/10. Pain is consistent in nature and denies exacerbating/ remitting factors. Denies associated dizziness, diaphoresis, numbness/tingling, visual/auditory changes, and shortness of breath. Admits to one bout of nausea and nonbloody nonbilious emesis. Further denies fever, chills, abdominal pain, diarrhea, constipation, and urinary symptoms. 12 point ROS negative except as indicated in HPI Past Medical History: hypertension, bradycardia, RBBB, and palpitations Past Surgical History: denies Allergies: NKDA Social History: denies ETOH use, denies Tobacco use, denies illicit drug use Family History: denies Medications: please see MAR PMD: Dr. Givens Physical Examination: - Head Exam Head Exam: ATRAUMATIC, NORMOCEPHALIC - Eye Exam Eye Exam: EOMI - ENT Exam ENT Exam: Mucous Membranes Moist - Neck Exam Neck exam: Full Rom, No JVD noted - Respiratory Exam Respiratory Exam: Clear to auscultation bilaterally, absent: Rales, Rhonchi, Wheezes - Cardiovascular Exam Cardiovascular Exam: Regular Rate and Rhythm, +S1, +S2. absent: Diastolic murmur, Gallop, Rubs, Systolic Murmur - GI/Abdominal Exam GI & Abdominal Exam: Soft. absent: Distended, Guarding, Rebound, Tenderness - Extremities Exam Extremities exam: normal inspection, no clubbing, no cyanosis, no edema - Neurological Exam Neurological exam: Patient is awake, alert, responds to verbal stimuli, answers questions appropriately, follows commands, and moves extremities past midline - Psychiatric Exam Psychiatric exam: Normal Affect, Normal Mood - Skin Skin Exam: Dry, Intact, Normal Color, Warm Assessment and Plan: Patient is a 82 year old female with a past medical history of hypertension, sustained bradycardia, RBBB, hyperthyroidism, and palpitations who admitted to the emergency department for evaluation and treatment of chest pain. In the ED the patient was given aspirin 325mg x 1, plavix 75mg x 1, morphine 2mg x 1, and zofran 4mg x 1. EKG revealed NSR, Left Atrial Enlargement, RBBB, Left Anterio Fascicular block, bifascicular block, T wave inversions in V3-V6. Abdominal ultrasound revealed a dilated CBD measuring 1.1 cm. As per ER physician, the code heart interventionlist was contacted (Dr. Lara) who recommended the patient be monitored in the ICU in light of positive troponins and EKG changes. ED physician stated he will start heparin drip after obtaining CTA to rule out dissection. Neuro: - Patient is awake, alert, responds to verbal stimuli, answers questions appropriately, follows commands, and moves extremities past midline Cardio: - Cardiac cath report from 01/14/17 - R PDA Ostial 60-70% stenosis, ectatic RCA and circumflex with slow flow, LVEF 55-60% - CT Angiography ordered by ED physician- pending at time of admission, Ed physician to start heparin drip pending negative CTA - CXR reviewed and appreciated- no active disease - HR trended, reviewed, and appreciated- stable in 80s, will continue to monitor closely - BPs trended, reviewed, and appreciated- 140s/80s, will continue to monitor closely - Troponins elevated at 0.31, repeat ordered for 5 AM with associated EKG - D dimer, BNP, Lipid profile ordered and pending - Cardiology consulted (Dr. Cloud)- appreciate recommendations - restart aspirin, losartan, HCTZ, nifedipine pending cardiology evaluation Pulm: - keep SaO2 above 92% GI: - prophylaxis with protonix - NPO except for medications as patient may need cardiac catherization today Renal/Electrolytes: - creatinine and BUN trended, reviewed, and appreciated- Within normal limits - will continue to monitor closely Endo: - keep patient euglycemic - hemoglobin A1c ordered and pending - hold methimazole at this time, TSH ordered and pending Heme: - Hgbs trended, reviewed, and appreciated- 12 (low normal range) - will continue to monitor closely - DVT prophylaxis with SCDs and heparin pending results of CTA Patient seen, case discussed with, and plan approved by attending physician, Dr. Banegas. Past Patient History - Infectious Disease Hx of Infectious Diseases: None - Past Social History Smoking Status: Former Smoker - CARDIAC Hx Hypertension: Yes - ENDOCRINE/METABOLIC Hx Diabetes Mellitus Type 2: Yes - MUSCULOSKELETAL/RHEUMATOLOGICAL Hx Falls: No - PSYCHIATRIC Hx Substance Use: No - SURGICAL HISTORY Hx Surgeries: No - ANESTHESIA Hx Anesthesia: Yes Hx Anesthesia Reactions: No Hx Malignant Hyperthermia: No Meds Allergies/Adverse Reactions: Allergies Allergy/AdvReac Type Severity Reaction Status Date / Time No Known Allergies Allergy Verified 08/18/14 00:47 Results - Vital Signs Recent Vital Signs: Last Vital Signs Temp 97.9 F 11/13/17 22:33 Pulse 87 11/13/17 22:33 Resp 16 11/13/17 22:33 BP 154/78 H 11/13/17 22:33 Pulse Ox 99 11/13/17 22:33 - Labs Result Diagrams: 11/13/17 23:40 11/13/17 23:40 Labs: Laboratory Results - last 24 hr 11/13/17 11/13/17 11/13/17 23:40 23:40 23:40 WBC 7.1 D RBC 4.93 Hgb 12.0 D Hct 36.3 MCV 73.6 L D MCH 24.3 L MCHC 33.1 RDW 16.1 H Plt Count 239 MPV 11.1 H Gran % 57.8 Lymph % (Auto) 29.3 [place] % (Auto) 10.0 H Eos % (Auto) 2.8 Baso % (Auto) 0.1 Gran # 4.08 Lymph # (Auto) 2.1 [place] # (Auto) 0.7 H Eos # (Auto) 0.2 Baso # (Auto) 0.01 PT 11.5 INR 1.01 APTT 29.6 Sodium 144 Potassium 3.8 Chloride 108 H Carbon Dioxide 27 Anion Gap 13 BUN 11 Creatinine 0.5 L Est GFR ( Amer) > 60 Est GFR (Non-Af Amer) > 60 Random Glucose 92 Calcium 9.5 Total Bilirubin 0.4 AST 43 H ALT 38 Alkaline Phosphatase 116 Lactate Dehydrogenase 472 Total Creatine Kinase 77 Troponin I 0.31 H* D Total Protein 6.5 Albumin 3.5 Globulin 2.9 Albumin/Globulin Ratio 1.2 Amylase 74 Lipase 41 <Roxann Banegas - Last Filed: 11/14/17 05:09> Meds - Medications Medications: Current Medications Pantoprazole Sodium (Protonix Inj) 40 mg IVP DAILY SCOTTIE Results - Vital Signs Recent Vital Signs: Last Vital Signs Temp 97.9 F 11/13/17 22:33 Pulse 81 11/14/17 02:00 Resp 19 11/14/17 02:00 BP 147/80 11/14/17 02:00 Pulse Ox 97 11/14/17 02:00 - Labs Result Diagrams: 11/13/17 23:40 11/13/17 23:40 Attending/Attestation - Attestation I have personally seen and examined this patient.: Yes I have fully participated in the care of the patient.: Yes I have reviewed all pertinent clinical information: Yes Notes (Text): 11/14/17 05:04 Patient was seen when she was in room # 12 in the ER. Medical record was reviewed. Agree with consultation note. allegedly want patient to be admitted to CCU.
[2017-11-14] MEDS ORDERED: Iohexol 300 100 ML IJ ONE ×2 (02:28→04:17)
[2017-11-14] MEDS ORDERED: Morphine 4 mg/ml ISec ONE (04:34)
[2017-11-14] MEDS ORDERED: Heparin25000 units/250ml 1/2NS 25,000 UNITS/250 ML BAG IV SCH (06:00)
[2017-11-14 06:08] LABS: BASO # 0.02 K/mm3 (0.0-2.0); BASO % 0.3 % (0.0-3.0); EOS # 0.1 (0.0-0.7); EOS % 1.2 % (1.5-5.0); GRAN # 4.86 (1.4-6.5); GRAN % 63.4 % (50.0-68.0); HEMOGLOBIN 11.4 g/dL (12.0-16.0); LYMPH # 2.1 (1.2-3.4); LYMPH % 27.6 % (22.0-35.0); MEAN CELL VOLUME 71.6 fl (80.0-105.0); MEAN CORPUSCULAR HEMOGLOBIN 23.7 pg (25.0-35.0); MEAN PLATELET VOLUME 9.7 fl (7.0-11.0); MONO # 0.6 (0.1-0.6); MONO % 7.5 % (1.0-6.0); RBC 4.82 10^6/uL (3.5-6.1); RED CELL DISTRIBUTION WIDTH 15.1 % (11.5-14.5); WHITE BLOOD COUNT 7.7 10^3/ul (4.5-11.0)
[2017-11-14 06:28] LABS: B-TYPE NATRIURETIC PEPTIDE 3800 pg/mL (0-450)
[2017-11-14 06:32] LABS: LDL CHOLESTEROL 56 mg/dL (0-129)
[2017-11-14 06:35] LABS: ALB/GLOB RATIO 1.2 (1.1-1.8); ALBUMIN 3.5 g/dL (3.0-4.8); ALT/SGPT 35 U/L (7-56); AST/SGOT 40 U/L (14-36); BLOOD UREA NITROGEN 8 mg/dL (7-21); CALCIUM 9.4 mg/dL (8.4-10.5); GFR AFRICAN-AMERICAN > 60; GFR NON-AFRICAN AMERICAN > 60; HDL CHOLESTEROL 48 mg/dL (29-60)
[2017-11-14 07:02] LABS: TROPONIN I 0.25 ng/mL
[2017-11-14 09:13] LABS: URINE BILIRUBIN NEGATIVE (NEGATIVE); URINE BLOOD NEGATIVE (NEGATIVE); URINE GLUCOSE (UA) NEGATIVE (NEGATIVE); URINE LEUKOCYTE ESTERASE NEGATIVE Leu/uL (NEGATIVE); URINE PROTEIN NEGATIVE mg/dL (<30 mg/dL); URINE UROBILINOGEN 0.2 E.U./dL (<1 E.U./dL)
[2017-11-14 09:14] LABS: URINE APPEARANCE CLEAR (CLEAR); URINE COLOR YELLOW (YELLOW)
--- NOTE | 2017-11-14 09:16 | RAD ---
Date of service: 11/13/2017 HISTORY: right posterior CP COMPARISON: No prior. FINDINGS: LUNGS: No active pulmonary disease. PLEURA: No significant pleural effusion identified, no pneumothorax apparent. CARDIOVASCULAR: Normal. OSSEOUS STRUCTURES: No significant abnormalities. VISUALIZED UPPER ABDOMEN: Normal. OTHER FINDINGS: None. IMPRESSION: No active disease.
--- NOTE | 2017-11-14 09:35 | CP.CCUPN ---
<Agatha Dhillon - Last Filed: 11/14/17 09:31> CCU Subjective - Physician Review Events Since Last Encounter (Free Text): Agatha Dhillon, PGY-1 ICU progress note Patient was seen and examined at bedside this morning. No acute events since arrival to ICU. Patient has good appetite. Last troponin is 0.25 down from 0.31. Patient speaks Creole limited Greek. Denies any current symptoms including chest pain, SOB, abdominal pain and urinary complaints. 12 point ROS noted here, otherwise negative. CCU Objective - Vital Signs / Intake & Output Vital Signs (Last 4 hours): Vital Signs Temp Pulse Resp BP Pulse Ox 11/14/17 08:00 97.7 F 54 L 30 H 125/50 L 99 11/14/17 07:00 51 L 12 118/61 95 11/14/17 06:03 67 13 93 L Intake and Output (Last 8hrs): Intake & Output 11/13/17 11/14/17 11/14/17 22:59 06:59 14:59 Weight 144 lb 12.8 oz - Physical Exam Head: Positive for: Atraumatic, Normocephalic Pupils: Positive for: PERRL Extroacular Muscles: Positive for: EOMI Conjunctiva: Positive for: Normal Mouth: Positive for: Moist Mucous Membranes Neck: Positive for: Normal Range of Motion, Trachea Midline. Negative for: Meningeal Signs, MIDLINE TENDERNESS, Paraspinal Tenderness, Lymphadenopathy Respiratory/Chest: Positive for: Clear to Auscultation, Good Air Exchange. Negative for: Respiratory Distress, Accessory Muscle Use, Wheezes, Decreased Breath Sounds, Rales, Retracting, Rhonchi, Tachypneic, Tender to Palpation Cardiovascular: Positive for: Regular Rate and Rhythm, Normal S1, S2. Negative for: Murmurs Abdomen: Negative for: Tenderness, Distention, Peritoneal Signs, Rebound, Guarding Back: Positive for: Normal Inspection. Negative for: CVA Tenderness Upper Extremity: Positive for: Normal Inspection. Negative for: Cyanosis, Edema Lower Extremity: Positive for: Normal Inspection. Negative for: Edema Neurological: Positive for: GCS=15, CN II-XII Intact, Speech Normal Skin: Positive for: Warm, Dry, Normal Color. Negative for: Rashes Psychiatric: Positive for: Alert, Oriented x 3, Normal Insight, Normal Concentration - Medications Active Medications: Active Medications Generic Name Dose Route Start Last Admin Trade Name Jamesq PRN Reason Stop Dose Admin Aspirin 81 mg 11/14/17 10:00 Ecotrin PO DAILY [facility] Atorvastatin Calcium 10 mg 11/14/17 17:00 Lipitor PO DIN [facility] Heparin Sodium/Sodium Chloride 25,000 units in 250 mls @ 7.882 mls/hr 06:00 11/14/17 07:00 Heparin 93068 Units/250ml 1/2 Normal Saline IV 12 units/kg/hr .Q24H [facility] 7.882 mls/hr Protocol Administration 12 UNITS/KG/HR Methimazole 5 mg 11/14/17 10:00 Tapazole PO BID [facility] Pantoprazole Sodium 40 mg 11/14/17 10:00 Protonix Inj IVP DAILY [facility] - Patient Studies Lab Studies: Lab Studies 11/14/17 11/14/17 11/14/17 Range/Units 08:00 05:30 05:30 WBC 7.7 (4.5-11.0) 10^3/ul RBC 4.82 (3.5-6.1) 10^6/uL Hgb 11.4 L (12.0-16.0) g/dL Hct 34.5 L (36.0-48.0) % MCV 71.6 L (80.0-105.0) fl MCH 23.7 L (25.0-35.0) pg MCHC 33.0 (31.0-37.0) g/dl RDW 15.1 H (11.5-14.5) % Plt Count 193 (120.0-450.0) 10^3/uL MPV 9.7 (7.0-11.0) fl Gran % 63.4 (50.0-68.0) % Lymph % (Auto) 27.6 (22.0-35.0) % [place] % (Auto) 7.5 H (1.0-6.0) % Eos % (Auto) 1.2 L (1.5-5.0) % Baso % (Auto) 0.3 (0.0-3.0) % Gran # 4.86 (1.4-6.5) Lymph # (Auto) 2.1 (1.2-3.4) [place] # (Auto) 0.6 (0.1-0.6) Eos # (Auto) 0.1 (0.0-0.7) Baso # (Auto) 0.02 (0.0-2.0) K/mm3 D-Dimer, Quantitative ng/mL Sodium 142 (132-148) mmol/L Potassium 3.7 (3.6-5.0) mmol/L Chloride 107 (98-107) mmol/L Carbon Dioxide 26 (21-33) mmol/L Anion Gap 13 (10-20) BUN 8 (7-21) mg/dL Creatinine 0.5 L (0.7-1.2) mg/dl Est GFR ( Amer) > 60 Est GFR (Non-Af Amer) > 60 Random Glucose 90 (70-110) mg/dL Calcium 9.4 (8.4-10.5) mg/dL Phosphorus 3.6 (2.5-4.5) mg/dL Magnesium 1.9 (1.7-2.2) mg/dL Total Bilirubin 0.5 (0.2-1.3) mg/dL AST 40 H (14-36) U/L ALT 35 (7-56) U/L Alkaline Phosphatase 113 (38-126) U/L Troponin I 0.25 H* ng/mL NT-Pro-B Natriuret Pep 3800 H (0-450) pg/mL Total Protein 6.4 (5.8-8.3) g/dL Albumin 3.5 (3.0-4.8) g/dL Globulin 2.9 gm/dL Albumin/Globulin Ratio 1.2 (1.1-1.8) Triglycerides 66 (35-160) mg/dL Cholesterol 126 L (130-200) mg/dL LDL Cholesterol Direct 56 (0-129) mg/dL HDL Cholesterol 48 (29-60) mg/dL TSH 3rd Generation (0.46-4.68) mIU/mL Urine Color Yellow (YELLOW) Urine Appearance Clear (CLEAR) Urine pH 6.0 (4.7-8.0) Ur Specific [place] <= 1.005 (1.005-1.035) Urine Protein Negative (<30 mg/dL) mg/dL Urine Glucose (UA) Negative (NEGATIVE) mg/dL Urine Ketones Negative (NEGATIVE) mg/dL Urine Blood Negative (NEGATIVE) Urine Nitrate Negative (NEGATIVE) Urine Bilirubin Negative (NEGATIVE) Urine Urobilinogen 0.2 (<1 E.U./dL) E.U./dL Ur Leukocyte Esterase Negative (NEGATIVE) Shar/uL 11/14/17 11/14/17 Range/Units 04:30 04:00 WBC (4.5-11.0) 10^3/ul RBC (3.5-6.1) 10^6/uL Hgb (12.0-16.0) g/dL Hct (36.0-48.0) % MCV (80.0-105.0) fl MCH (25.0-35.0) pg MCHC (31.0-37.0) g/dl RDW (11.5-14.5) % Plt Count (120.0-450.0) 10^3/uL MPV (7.0-11.0) fl Gran % (50.0-68.0) % Lymph % (Auto) (22.0-35.0) % [place]lee % (Auto) (1.0-6.0) % Eos % (Auto) (1.5-5.0) % Baso % (Auto) (0.0-3.0) % Gran # (1.4-6.5) Lymph # (Auto) (1.2-3.4) [place]lee # (Auto) (0.1-0.6) Eos # (Auto) (0.0-0.7) Baso # (Auto) (0.0-2.0) K/mm3 D-Dimer, Quantitative 656 ng/mL Sodium (132-148) mmol/L Potassium (3.6-5.0) mmol/L Chloride (98-107) mmol/L Carbon Dioxide (21-33) mmol/L Anion Gap (10-20) BUN (7-21) mg/dL Creatinine (0.7-1.2) mg/dl Est GFR ( Amer) Est GFR (Non-Af Amer) Random Glucose (70-110) mg/dL Calcium (8.4-10.5) mg/dL Phosphorus (2.5-4.5) mg/dL Magnesium (1.7-2.2) mg/dL Total Bilirubin (0.2-1.3) mg/dL AST (14-36) U/L ALT (7-56) U/L Alkaline Phosphatase (38-126) U/L Troponin I ng/mL NT-Pro-B Natriuret Pep (0-450) pg/mL Total Protein (5.8-8.3) g/dL Albumin (3.0-4.8) g/dL Globulin gm/dL Albumin/Globulin Ratio (1.1-1.8) Triglycerides (35-160) mg/dL Cholesterol (130-200) mg/dL LDL Cholesterol Direct (0-129) mg/dL HDL Cholesterol (29-60) mg/dL TSH 3rd Generation < 0.02 L (0.46-4.68) mIU/mL Urine Color (YELLOW) Urine Appearance (CLEAR) Urine pH (4.7-8.0) Ur Specific [place] (1.005-1.035) Urine Protein (<30 mg/dL) mg/dL Urine Glucose (UA) (NEGATIVE) mg/dL Urine Ketones (NEGATIVE) mg/dL Urine Blood (NEGATIVE) Urine Nitrate (NEGATIVE) Urine Bilirubin (NEGATIVE) Urine Urobilinogen (<1 E.U./dL) E.U./dL Ur Leukocyte Esterase (NEGATIVE) Shar/uL Laboratory Results - last 24 hr 11/14/17 11/14/17 11/14/17 04:00 04:30 05:30 WBC RBC Hgb Hct MCV MCH MCHC RDW Plt Count MPV Gran % Lymph % (Auto) [place] % (Auto) Eos % (Auto) Baso % (Auto) Gran # Lymph # (Auto) [place] # (Auto) Eos # (Auto) Baso # (Auto) D-Dimer, Quantitative 656 Sodium 142 Potassium 3.7 Chloride 107 Carbon Dioxide 26 Anion Gap 13 BUN 8 Creatinine 0.5 L Est GFR ( Amer) > 60 Est GFR (Non-Af Amer) > 60 Random Glucose 90 Calcium 9.4 Phosphorus 3.6 Magnesium 1.9 Total Bilirubin 0.5 AST 40 H ALT 35 Alkaline Phosphatase 113 Troponin I 0.25 H* NT-Pro-B Natriuret Pep 3800 H Total Protein 6.4 Albumin 3.5 Globulin 2.9 Albumin/Globulin Ratio 1.2 Triglycerides 66 Cholesterol 126 L LDL Cholesterol Direct 56 HDL Cholesterol 48 TSH 3rd Generation < 0.02 L Urine Color Urine Appearance Urine pH Ur Specific [place] Urine Protein Urine Glucose (UA) Urine Ketones Urine Blood Urine Nitrate Urine Bilirubin Urine Urobilinogen Ur Leukocyte Esterase 11/14/17 11/14/17 05:30 08:00 WBC 7.7 RBC 4.82 Hgb 11.4 L Hct 34.5 L MCV 71.6 L MCH 23.7 L MCHC 33.0 RDW 15.1 H Plt Count 193 MPV 9.7 Gran % 63.4 Lymph % (Auto) 27.6 Greenlee % (Auto) 7.5 H Eos % (Auto) 1.2 L Baso % (Auto) 0.3 Gran # 4.86 Lymph # (Auto) 2.1 [place] # (Auto) 0.6 Eos # (Auto) 0.1 Baso # (Auto) 0.02 D-Dimer, Quantitative Sodium Potassium Chloride Carbon Dioxide Anion Gap BUN Creatinine Est GFR ( Amer) Est GFR (Non-Af Amer) Random Glucose Calcium Phosphorus Magnesium Total Bilirubin AST ALT Alkaline Phosphatase Troponin I NT-Pro-B Natriuret Pep Total Protein Albumin Globulin Albumin/Globulin Ratio Triglycerides Cholesterol LDL Cholesterol Direct HDL Cholesterol TSH 3rd Generation Urine Color Yellow Urine Appearance Clear Urine pH 6.0 Ur Specific [place] <= 1.005 Urine Protein Negative Urine Glucose (UA) Negative Urine Ketones Negative Urine Blood Negative Urine Nitrate Negative Urine Bilirubin Negative Urine Urobilinogen 0.2 Ur Leukocyte Esterase Negative EKG/Cardiology Studies: Cardiology / EKG Studies 11/14/17 06:00 EKG [ELECTROCARDIOGRAM] Routine Comment: Reason For Exam: chest pain Critical Care Progress Note - Nutrition Nutrition: Nutrition Category Date Time Status NPO Diet [DIET] Diets 11/14/17 Breakfast Ordered Assessment/Plan - Assessment and Plan (Free Text) Assessment: Assessment: This is a 82 year old female with PMH significant for HT, RBBB, hyperthyroidism , history of bradycardia and DM presenting to the ICU for management of NSTEMI. Neuro: -AO x 3, moving extremities spontaneously past midline -maintain normothermia Cardio: -Last troponin was 0.25 down for 0.31 on admission. No current chest pain or SOB. -CTA showed no vascular abnormality -currently on heparin drip -CXR reviewed, no active disease. -HR trended and noted in the 50-60s, history of bradycardia, will monitor -BP tended and noted in the 120s/80s, will monitor -Last cardiac cath on 01/2017 showed R PDA 60-70% stenosis and LVEF of 55-60%. -BNP is 3,800. D-dimer is 656, cholesterol is 126 -restart ASA, losartan, HCTZ, nifedipine pending cardiology eval -lipitor started -Cardiology is on consult Lung: -maintain SaO2 > 90% Endo: -glucose ACHS -keep patient euglycemis -A1C pending -resumed methimazole Heme: -Hg is 11.4 today, will continue to monitor -DVT ppx with SCD, heparin GI: -GI ppx with protonix -NPO diet Renal: -BUN/Cr noted and reviewed within normal limits -will monitor ID: -WBC within normal limits, afebrile <Alphonso Wolff - Last Filed: 11/14/17 11:48> CCU Objective - Vital Signs / Intake & Output Vital Signs (Last 4 hours): Vital Signs Temp Pulse Resp BP Pulse Ox 11/14/17 10:00 60 11/14/17 08:00 97.7 F 54 L 30 H 125/50 L 99 Intake and Output (Last 8hrs): Intake & Output 11/13/17 11/14/17 11/14/17 22:59 06:59 14:59 Weight 144 lb 12.8 oz - Medications Active Medications: Active Medications Generic Name Dose Route Start Last Admin Trade Name Freq PRN Reason Stop Dose Admin Aspirin 81 mg 11/14/17 10:00 11/14/17 10:13 Ecotrin PO 81 mg DAILY [facility] Administration Atorvastatin Calcium 10 mg 11/14/17 17:00 Lipitor PO DIN [facility] Heparin Sodium/Sodium Chloride 25,000 units in 250 mls @ 7.882 mls/hr 06:00 11/14/17 07:00 Heparin 15308 Units/250ml 1/2 Normal Saline IV 12 units/kg/hr .Q24H [facility] 7.882 mls/hr Protocol Administration 12 UNITS/KG/HR Methimazole 5 mg 11/14/17 10:00 11/14/17 10:13 Tapazole PO 5 mg BID [facility] Administration Pantoprazole Sodium 40 mg 11/14/17 10:00 11/14/17 10:13 Protonix Inj IVP 40 mg DAILY [facility] Administration - Patient Studies Lab Studies: Lab Studies 11/14/17 11/14/17 11/14/17 Range/Units 08:00 05:30 05:30 WBC 7.7 (4.5-11.0) 10^3/ul RBC 4.82 (3.5-6.1) 10^6/uL Hgb 11.4 L (12.0-16.0) g/dL Hct 34.5 L (36.0-48.0) % MCV 71.6 L (80.0-105.0) fl MCH 23.7 L (25.0-35.0) pg MCHC 33.0 (31.0-37.0) g/dl RDW 15.1 H (11.5-14.5) % Plt Count 193 (120.0-450.0) 10^3/uL MPV 9.7 (7.0-11.0) fl Gran % 63.4 (50.0-68.0) % Lymph % (Auto) 27.6 (22.0-35.0) % [place]lee % (Auto) 7.5 H (1.0-6.0) % Eos % (Auto) 1.2 L (1.5-5.0) % Baso % (Auto) 0.3 (0.0-3.0) % Gran # 4.86 (1.4-6.5) Lymph # (Auto) 2.1 (1.2-3.4) [place]lee # (Auto) 0.6 (0.1-0.6) Eos # (Auto) 0.1 (0.0-0.7) Baso # (Auto) 0.02 (0.0-2.0) K/mm3 D-Dimer, Quantitative ng/mL Sodium 142 (132-148) mmol/L Potassium 3.7 (3.6-5.0) mmol/L Chloride 107 (98-107) mmol/L Carbon Dioxide 26 (21-33) mmol/L Anion Gap 13 (10-20) BUN 8 (7-21) mg/dL Creatinine 0.5 L (0.7-1.2) mg/dl Est GFR ( Amer) > 60 Est GFR (Non-Af Amer) > 60 Random Glucose 90 (70-110) mg/dL Calcium 9.4 (8.4-10.5) mg/dL Phosphorus 3.6 (2.5-4.5) mg/dL Magnesium 1.9 (1.7-2.2) mg/dL Total Bilirubin 0.5 (0.2-1.3) mg/dL AST 40 H (14-36) U/L ALT 35 (7-56) U/L Alkaline Phosphatase 113 (38-126) U/L Troponin I 0.25 H* ng/mL NT-Pro-B Natriuret Pep 3800 H (0-450) pg/mL Total Protein 6.4 (5.8-8.3) g/dL Albumin 3.5 (3.0-4.8) g/dL Globulin 2.9 gm/dL Albumin/Globulin Ratio 1.2 (1.1-1.8) Triglycerides 66 (35-160) mg/dL Cholesterol 126 L (130-200) mg/dL LDL Cholesterol Direct 56 (0-129) mg/dL HDL Cholesterol 48 (29-60) mg/dL TSH 3rd Generation (0.46-4.68) mIU/mL Urine Color Yellow (YELLOW) Urine Appearance Clear (CLEAR) Urine pH 6.0 (4.7-8.0) Ur Specific [place] <= 1.005 (1.005-1.035) Urine Protein Negative (<30 mg/dL) mg/dL Urine Glucose (UA) Negative (NEGATIVE) mg/dL Urine Ketones Negative (NEGATIVE) mg/dL Urine Blood Negative (NEGATIVE) Urine Nitrate Negative (NEGATIVE) Urine Bilirubin Negative (NEGATIVE) Urine Urobilinogen 0.2 (<1 E.U./dL) E.U./dL Ur Leukocyte Esterase Negative (NEGATIVE) Shar/uL 11/14/17 11/14/17 Range/Units 04:30 04:00 WBC (4.5-11.0) 10^3/ul RBC (3.5-6.1) 10^6/uL Hgb (12.0-16.0) g/dL Hct (36.0-48.0) % MCV (80.0-105.0) fl MCH (25.0-35.0) pg MCHC (31.0-37.0) g/dl RDW (11.5-14.5) % Plt Count (120.0-450.0) 10^3/uL MPV (7.0-11.0) fl Gran % (50.0-68.0) % Lymph % (Auto) (22.0-35.0) % [place] % (Auto) (1.0-6.0) % Eos % (Auto) (1.5-5.0) % Baso % (Auto) (0.0-3.0) % Gran # (1.4-6.5) Lymph # (Auto) (1.2-3.4) [place] # (Auto) (0.1-0.6) Eos # (Auto) (0.0-0.7) Baso # (Auto) (0.0-2.0) K/mm3 D-Dimer, Quantitative 656 ng/mL Sodium (132-148) mmol/L Potassium (3.6-5.0) mmol/L Chloride (98-107) mmol/L Carbon Dioxide (21-33) mmol/L Anion Gap (10-20) BUN (7-21) mg/dL Creatinine (0.7-1.2) mg/dl Est GFR ( Amer) Est GFR (Non-Af Amer) Random Glucose (70-110) mg/dL Calcium (8.4-10.5) mg/dL Phosphorus (2.5-4.5) mg/dL Magnesium (1.7-2.2) mg/dL Total Bilirubin (0.2-1.3) mg/dL AST (14-36) U/L ALT (7-56) U/L Alkaline Phosphatase (38-126) U/L Troponin I ng/mL NT-Pro-B Natriuret Pep (0-450) pg/mL Total Protein (5.8-8.3) g/dL Albumin (3.0-4.8) g/dL Globulin gm/dL Albumin/Globulin Ratio (1.1-1.8) Triglycerides (35-160) mg/dL Cholesterol (130-200) mg/dL LDL Cholesterol Direct (0-129) mg/dL HDL Cholesterol (29-60) mg/dL TSH 3rd Generation < 0.02 L (0.46-4.68) mIU/mL Urine Color (YELLOW) Urine Appearance (CLEAR) Urine pH (4.7-8.0) Ur Specific [place] (1.005-1.035) Urine Protein (<30 mg/dL) mg/dL Urine Glucose (UA) (NEGATIVE) mg/dL Urine Ketones (NEGATIVE) mg/dL Urine Blood (NEGATIVE) Urine Nitrate (NEGATIVE) Urine Bilirubin (NEGATIVE) Urine Urobilinogen (<1 E.U./dL) E.U./dL Ur Leukocyte Esterase (NEGATIVE) Shar/uL Laboratory Results - last 24 hr 11/14/17 11/14/17 11/14/17 04:00 04:30 05:30 WBC RBC Hgb Hct MCV MCH MCHC RDW Plt Count MPV Gran % Lymph % (Auto) [place] % (Auto) Eos % (Auto) Baso % (Auto) Gran # Lymph # (Auto) [place] # (Auto) Eos # (Auto) Baso # (Auto) D-Dimer, Quantitative 656 Sodium 142 Potassium 3.7 Chloride 107 Carbon Dioxide 26 Anion Gap 13 BUN 8 Creatinine 0.5 L Est GFR ( Amer) > 60 Est GFR (Non-Af Amer) > 60 Random Glucose 90 Calcium 9.4 Phosphorus 3.6 Magnesium 1.9 Total Bilirubin 0.5 AST 40 H ALT 35 Alkaline Phosphatase 113 Troponin I 0.25 H* NT-Pro-B Natriuret Pep 3800 H Total Protein 6.4 Albumin 3.5 Globulin 2.9 Albumin/Globulin Ratio 1.2 Triglycerides 66 Cholesterol 126 L LDL Cholesterol Direct 56 HDL Cholesterol 48 TSH 3rd Generation < 0.02 L Urine Color Urine Appearance Urine pH Ur Specific [place] Urine Protein Urine Glucose (UA) Urine Ketones Urine Blood Urine Nitrate Urine Bilirubin Urine Urobilinogen Ur Leukocyte Esterase 11/14/17 11/14/17 05:30 08:00 WBC 7.7 RBC 4.82 Hgb 11.4 L Hct 34.5 L MCV 71.6 L MCH 23.7 L MCHC 33.0 RDW 15.1 H Plt Count 193 MPV 9.7 Gran % 63.4 Lymph % (Auto) 27.6 [place] % (Auto) 7.5 H Eos % (Auto) 1.2 L Baso % (Auto) 0.3 Gran # 4.86 Lymph # (Auto) 2.1 [place] # (Auto) 0.6 Eos # (Auto) 0.1 Baso # (Auto) 0.02 D-Dimer, Quantitative Sodium Potassium Chloride Carbon Dioxide Anion Gap BUN Creatinine Est GFR ( Amer) Est GFR (Non-Af Amer) Random Glucose Calcium Phosphorus Magnesium Total Bilirubin AST ALT Alkaline Phosphatase Troponin I NT-Pro-B Natriuret Pep Total Protein Albumin Globulin Albumin/Globulin Ratio Triglycerides Cholesterol LDL Cholesterol Direct HDL Cholesterol TSH 3rd Generation Urine Color Yellow Urine Appearance Clear Urine pH 6.0 Ur Specific [place] <= 1.005 Urine Protein Negative Urine Glucose (UA) Negative Urine Ketones Negative Urine Blood Negative Urine Nitrate Negative Urine Bilirubin Negative Urine Urobilinogen 0.2 Ur Leukocyte Esterase Negative EKG/Cardiology Studies: Cardiology / EKG Studies 11/14/17 06:00 EKG [ELECTROCARDIOGRAM] Routine Comment: Reason For Exam: chest pain Critical Care Progress Note - Nutrition Nutrition: Nutrition Category Date Time Status Heart Healthy Diet [DIET] Diets 11/14/17 Lunch Active Assessment/Plan - Assessment and Plan (Free Text) Assessment: Patient seen and examined on rounds with resident, agree with note with following additions/exceptions: Patient is 82 year old female with PMH significant for HT, RBBB, hyperthyroidism , history of bradycardia and DM admitted with NSTEMI. Currently the patient is afebrile, BP stable, comfortable in NAD, NO major complaints, denies CP, SOB. Labs, imaging, chart reviewed. Troponin downtrending Seen by cardiology, cleared for telemetry transfer NSTEMI RBBB Hyperthyroidism DM Recommend: - supp o2 as needed - NO ID issues - BP Control - ASA, Plavix, Statin - BB - resume Methimazole - check HgbA1C - FS control - Heparin drip - Possible PCI tomorrow - GI ppx - DVT ppx - Transfer to telemetry
[2017-11-14] MEDS ORDERED: methIMAzole 5 MG TAB PO SCH (10:00)
[2017-11-14] MEDS: methIMAzole 5 MG TAB PO SCH ×2 (10:13→17:00)
--- NOTE | 2017-11-14 12:58 | CT ---
PROCEDURE: CT Angiography Chest, Abdomen and Pelvis with and without intravenous contrast HISTORY: back pain r/o dissection COMPARISON: None. TECHNIQUE: Contiguous axial images of the chest, abdomen and pelvis were obtained in the phase of aortic enhancement. A noncontrast enhanced CT of the chest was also obtained to evaluate for possible intramural thrombus. Coronal and sagittal reformats were generated. IV dose administered: 100 cc of Omni 300 Radiation dose: Total exam DLP = 724 mGy-cm. This CT exam was performed using one or more of the following dose reduction techniques: Automated exposure control, adjustment of the mA and/or kV according to patient size, and/or use of iterative reconstruction technique. FINDINGS: CT ANGIOGRAPHY OF THE CHEST WITH & WITHOUT CONTRAST: AORTA (CHEST AND ABDOMEN): The thoracic and abdominal aorta are unremarkable, without aneurysm, dissection or rupture. No intramural thrombus identified in the thoracic aorta on the non-contrast ct of the chest. The celiac axis, superior mesenteric artery, inferior mesenteric artery and the renal arteries are widely patent. The pelvic arteries are unremarkable. LUNGS: There is peribronchial thickening bilaterally. There is no focal consolidation MEDIASTINUM: Unremarkable. Normal caliber aorta and pulmonary arterial trunk. No aortic dissection. Normal size heart. There is no evidence of pulmonary embolus LYMPH NODES: Unremarkable. PLEURA: Unremarkable. No pneumothorax. No pleural fluid. BONES: Unremarkable. OTHER FINDINGS: None. CT ANGIOGRAPHY OF THE ABDOMEN AND PELVIS WITH CONTRAST: LIVER: Unremarkable. No gross lesion or ductal dilatation. GALLBLADDER AND BILE DUCTS: Unremarkable. PANCREAS: Unremarkable. No gross lesion or ductal dilatation. SPLEEN: Unremarkable. ADRENALS: Unremarkable. No mass. KIDNEYS AND URETERS: Unremarkable. No hydronephrosis. No solid mass. VASCULATURE: Unremarkable. No aortic aneurysm. STOMACH AND BOWEL: Unremarkable. No obstruction. No gross mural thickening. APPENDIX: Normal appendix. PERITONEUM: Unremarkable. No free fluid. No free air. LYMPH NODES: Unremarkable. No enlarged lymph nodes. BLADDER: Unremarkable. REPRODUCTIVE: Unremarkable. BONES: No acute fracture. OTHER FINDINGS: None. IMPRESSION: No acute intrathoracic or intra-abdominal findings. No evidence of aortic dissection or pulmonary embolus
[2017-11-14 13:12] VITALS: BMI 27.3
--- NOTE | 2017-11-14 15:06 | US ---
Date of service: 11/13/2017 HISTORY: RUQ pain COMPARISON: None. TECHNIQUE: Sonographic evaluation of the abdomen. FINDINGS: LIVER: Measures 13.2 cm. Normal echogenicity of the liver parenchyma. No mass. No intrahepatic bile duct dilatation. GALLBLADDER: Unremarkable. No gallstones. COMMON BILE DUCT: Measures 10 mm. No stones. No dilatation. PANCREAS: Unremarkable as visualized. No mass. No ductal dilatation. RIGHT KIDNEY: Measures 8.9 x 4.0 x 5.2cm. Normal echogenicity. No calculus, mass, or hydronephrosis. LEFT KIDNEY: Measures 10.7 x 4.8 x 5.9cm. Normal echogenicity. No calculus, mass, or hydronephrosis. SPLEEN: Normal in size and contour. No mass. 8.8 x 3.7 x 3.8 AORTA: Not visualized due to bowel gas IVC: Unremarkable. OTHER FINDINGS: The report concurs with the preliminary [facility] report IMPRESSION: Dilated common duct. No evidence of gallstones
--- NOTE | 2017-11-14 20:11 | HP ---
Copied To: Amaris Cristina MD Attending MD: Amaris Cristina MD HISTORY OF PRESENT ILLNESS: The patient is an 82-year-old female. She was evaluated in the emergency room for chest pain. Patient was admitted after the consideration was pulmonary emboli, rule out myocardial infarction. Patient had a CAT scan, angiogram in the emergency room to rule out pulmonary embolism that was done. Patient's troponin level was elevated. Patient is seen this morning. She is comfortable. She is unable to communicate in Faroese. ALLERGIES: NO KNOWN ALLERGIES. PAST MEDICAL HISTORY: She has history of diabetes and hypertension. She also has history of vitamin D deficiency. PHYSICAL EXAMINATION: VITAL SIGNS: Pulse is 81, blood pressure 147/80, respirations 19, patient's O2 sat 97% on room air. Patient is in the critical care unit, room 129, bed 2. HEENT: Head is normocephalic. NECK: The thyroid is not enlarged. Carotid pulses are present. JVP is flat. No lymphadenopathy. LUNGS: Trachea central. Breath sounds vesicular. No adventitious sounds are heard. HEART: Normal sinus rhythm. S1 and S2 present. No murmurs. No rubs. ABDOMEN: Soft. Liver and spleen not palpable. CENTRAL NERVOUS SYSTEM: Patient is conscious, has no focal neurological deficits. LABORATORY DATA: The patient's blood work shows a hemoglobin of 11.4, white count of 7700. Patient's platelet count is 193,000. Chemistry, the patient's troponin was 0.31 yesterday, today it is 0.25 with decrease in numbers. Patient's renal functions are within normal limits. Creatinine 0.5. Patient's BNP was 3800. TSH, the number is less than 0.02 that is too low, we will have to check the patient's T4 that has not been done. DIAGNOSTIC DATA: Patient's EKG was done showed nonspecific ST-T wave changes. Patient's abdominal ultrasound shows evidence of dilatation of the common bile duct. Liver function seemed to be okay. ASSESSMENT AND PLAN: Patient was evaluated by the strap setter covering for Dr. Trevino. The patient's strap setter name is Dr. Lopez. Patient is clinically stable at this time. We will follow up, with the medications and patient's medication list consists of aspirin 81 mg daily, patient is on heparin drip, pantoprazole 40 mg daily and patient will be on insulin coverage for diabetes, and patient will be placed on medication for blood pressure. Amaris Cristina MD [facility] # [id number]
[2017-11-14] MEDS ORDERED: Naproxen 550 mg Tab PO ONE (21:00)
[2017-11-15 06:38] LABS: BASO # 0.02 K/mm3 (0.0-2.0); BASO % 0.3 % (0.0-3.0); EOS # 0.4 (0.0-0.7); EOS % 6.3 % (1.5-5.0); GRAN # 3.51 (1.4-6.5); GRAN % 54.8 % (50.0-68.0); HEMOGLOBIN 11.5 g/dL (12.0-16.0); LYMPH # 2.1 (1.2-3.4); MEAN CELL VOLUME 72.7 fl (80.0-105.0); MEAN CORPUSCULAR HEMOGLOBIN 24.2 pg (25.0-35.0); MEAN CORPUSCULAR HGB CONC 33.2 g/dl (31.0-37.0); MEAN PLATELET VOLUME 10.5 fl (7.0-11.0); MONO # 0.4 (0.1-0.6); MONO % 6.6 % (1.0-6.0); RBC 4.76 10^6/uL (3.5-6.1); RED CELL DISTRIBUTION WIDTH 15.5 % (11.5-14.5); WHITE BLOOD COUNT 6.4 10^3/ul (4.5-11.0)
[2017-11-15 06:48] LABS: ALB/GLOB RATIO 1.2 (1.1-1.8); ALBUMIN 3.5 g/dL (3.0-4.8); ALT/SGPT 37 U/L (7-56); AST/SGOT 59 U/L (14-36); BLOOD UREA NITROGEN 9 mg/dL (7-21); CALCIUM 9.8 mg/dL (8.4-10.5); GFR AFRICAN-AMERICAN > 60; GFR NON-AFRICAN AMERICAN > 60
--- NOTE | 2017-11-15 06:54 | CARD ---
APPROVED REPORT Date of service: 11/14/2017 EKG Measurement Heart [id number] <Conclusion> Normal sinus rhythm Right bundle branch block Left anterior fascicular block Bifascicular block T wave abnormality, consider anterolateral ischemia Prolonged QT interval Abnormal ECG
--- NOTE | 2017-11-15 06:55 | CARD ---
APPROVED REPORT Date of service: 11/14/2017 EKG Measurement Heart [id number] <Conclusion> Normal sinus rhythm Possible Left atrial enlargement Right bundle branch block Left anterior fascicular block Bifascicular block T wave abnormality, consider anterolateral ischemia Prolonged QT interval Abnormal ECG
[2017-11-15] MEDS ORDERED: Naproxen 550 mg Tab PO ONE (07:32)
--- NOTE | 2017-11-15 08:09 | CON ---
Copied To: Nadir Lpoez MD Attending MD: Nadir Lopez MD CARDIOLOGY CONSULTATION DATE: 11/14/2017 REASON FOR CONSULTATION: Chest pain. HISTORY OF PRESENT ILLNESS: The patient is an 82-year-old female originally from who was brought in by the daughter to the emergency room because of chest pain that is right-sided and posterior for the past two days. Patient was reported to be constant. The patient underwent stress test on 01/2017, which was mildly positive, however, cardiac catheterization was performed following that and it did revealed a significant disease of the mid circumflex artery as well as an ectatic right coronary artery vessel with normal ejection fraction. No intervention was needed at that point. The patient at this time is chest pain free. She denies any leg pain. MEDICATIONS: Aspirin 81 mg once a day, therapeutic heparin regimen for acute coronary syndrome, Lipitor 10 mg once a day, Protonix 20 mg intravenously once a day, Tapazole 5 mg twice a day. PHYSICAL EXAMINATION: GENERAL: The patient is an elderly female who does not appeared to be in acute distress. VITAL SIGNS: Blood pressure 125/50, heart rate 54, temperature 97.7, respirations 30. HEENT: Normocephalic. CHEST: Clear. HEART: S1, S2 regular. EXTREMITIES: No edema. No calf tenderness. LABORATORY DATA: Today's hemoglobin and hematocrit 11.4 and 34.5. White count and platelet count are within normal limits. Today's SMA-7 is within normal limit except for creatinine . Troponin 0.01 and 0.25. ProBNP is 3800. TSH level is below 0.02. Amylase and lipase are within normal limit. D-dimer is within normal limit. DIAGNOSTIC DATA: EKG revealed sinus rhythm with anterolateral ischemic T-wave inversion. ASSESSMENT: 1. Chest pain, rule out gbs-FI-gfhiofall myocardial infarction. 2. Rule out pulmonary infarction. 3. Hypothyroidism. RECOMMENDATIONS: Continue current intravenous heparin in therapeutic regimen, aspirin 81 mg once a day, Tapazole 5 mg twice a day, Protonix 20 mg intravenously once a day. I did review the CT angio report and although the central pulmonary arteries were unremarkable. The segmental branch is not well clearly defined and although the preliminary report is negative for PE, official and final report is still pending. In the meantime, I requested venous Doppler of lower extremities. Nadir Lopez MD
[2017-11-15] MEDS: methIMAzole 5 MG TAB PO SCH ×2 (09:09→18:00)
--- NOTE | 2017-11-15 09:57 | US ---
HISTORY: Leg pain and swelling. Evaluate for DVT PHYSICIAN(S): Keith Cabral MD. TECHNIQUE: Duplex sonography and color-flow Doppler with graded compression were used to evaluate the deep venous systems of both lower extremities. FINDINGS: The visualized deep venous systems of both lower extremities are sonographically normal and compressible. Normal wave forms and augmentation are seen. There is no sonographic evidence for deep venous thrombosis in the visualized segments of both lower extremities. IMPRESSION: No sonographic evidence for deep venous thrombosis in the visualized segments of both lower extremities.
[2017-11-15] MEDS ORDERED: Lidocaine PF 2% (5 ml) Inj (For Cardiac Arrhy) ONE (12:10)
[2017-11-15] MEDS ORDERED: Nitroglycerin 50mg in D5W 0 MG/0 ML BOTTLE IV ONE (12:11)
[2017-11-15] MEDS ORDERED: Iodixanol 320 MG/ML 200 ML BOTTLE IV ONE (12:11)
[2017-11-15] MEDS ORDERED: Verapamil 0 ML ONE (12:11)
[2017-11-15] MEDS ORDERED: Iohexol 350mgl/ml 50 ML ONE (12:11)
[2017-11-15 12:20] LABS: FREE T4 0.99 ng/dL (0.78-2.19); T4 7.3 ug/dL (5.5-11.0)
[2017-11-15] MEDS ORDERED: Midazolam 2 MG/2 ML VIAL ONE (13:06)
[2017-11-15] MEDS ORDERED: Sodium Chloride 0.9% 1,000 ML IV SCH (13:45)
--- NOTE | 2017-11-15 14:35 | PN ---
Copied To: Anish Givens MD Attending MD: Anish Givens MD DATE: 11/15/2017 SUBJECTIVE: The patient is seen in CCU bed 2. The patient is lying in the bed, complaining of right-sided ribcage pain and back pain. Overnight nurse's notes were reviewed. The patient is complaining of right-sided lower back pain, right ribcage pain. The patient was examined. The patient's nurse's notes were reviewed. The patient's heparin was discontinued as per assistant maintenance manager's orders. The patient is awaiting cardiac catheterization. PHYSICAL EXAMINATION: VITAL SIGNS: T-max 98.2. Telemetry shows sinus rhythm, sinus bradycardia. Blood pressure is 146/72, 125/50, 147/80; respirations 12 to 18 to 30; 95-99%. HEENT: Head examination normocephalic, atraumatic. HEENT examination shows pinkish conjunctivae. Anicteric sclerae. No oropharyngeal lesion. No neck rigidity. CHEST: Kyphosis. Positive right posterior ribcage tenderness. Positive paraspinal tenderness. No costovertebral angle tenderness noted. GENITALIA: Female. EXTREMITIES: Lower extremity shows no pitting edema, no calf tenderness, no Homans' sign. NEUROLOGICAL: The patient is alert, awake, responsive, is able to move upper and lower extremity without assistance. Gait examination could not be tested. The patient is lying in the bed. The patient was lying in the bed. VASCULAR: Palpable pulses of the lower extremity. MUSCULOSKELETAL: As per the body mass index of 27.4. DIAGNOSTIC DATA: On 11/15/2017, WBC of 6.4, hemoglobin and hematocrit 11.5 and 34.6, platelet 211, PTT 40. Sodium 142, potassium 3.9, chloride 106, CO2 of 27, anion gap 13, BUN 9, creatinine 0.5, GFR greater than 60, glucose 77, calcium 9.8, AST 59, peak troponin is 0.31, BNP 3800, cholesterol 126, LDL 56. IMPRESSION AND PLAN: 1. Acute oxv-YM-pwaxrqoic myocardial infarction with elevated troponin. 2. Possible unstable angina. 3. Asymptomatic bradycardia. 4. Normocytic anemia. 5. Ribcage pain and back pain. 6. Elevated D-dimer. 7. Mild transaminitis. 8. Elevated BNP, etiology undetermined. 9. History of recently diagnosed hyperthyroidism. 10. History of recent weight loss. 11. History of hypovitaminosis D. 12. Bilateral peribronchial thickening, etiology undetermined. 13. Dilated common bile duct without gallstones. 14. Coronary ischemic changes. 15. Bifascicular block with right bundle-branch block, left anterior hemiblock. 16. Inferolateral, anterolateral coronary ischemic changes. 17. History of coronary artery disease. 18. History of hyperthyroidism. Plan at this time, the patient has been ordered serial labs, transferred to telemetry. Rib x-rays ordered. The patient has been given Naprosyn dose by assistant maintenance manager. The patient is on aspirin 81 daily, Lidoderm patch to the affected area, Lipitor 10 mg daily. The patient received Plavix. Before, Protonix 40 IV daily, Tapazole 5 mg twice a day. The patient is on chest PT, oxygen therapy, incentive spirometer. The patient has been ordered out of bed, thromboembolic disease stockings, sequential compression devices. At present, the patient's further management will be dependent upon the patient's clinical condition, hemodynamic status and as per the patient's response to therapeutic intervention, as per the patient's diagnostic test results and as per recommendation by all the physician involved in the care of the patient. Dictated and electronically signed, not read. Anish Givens MD
--- NOTE | 2017-11-15 14:37 | CPOSTOP ---
Copied To: Cori Cloud MD Attending MD: Cori Cloud MD DATE: 11/15/2017 CARDIOVASCULAR LAB POST PROCEDURE NOTE DICTATING PHYSICIAN: Cori Cloud MD LINK TRAINER MAINTENANCE MAN: Billy العلي ophthalmic technician. TYPE OF ANESTHESIA: Moderate conscious sedation, total given 2 mg of Versed, 100 of fentanyl. Periodically started 1 mg of Versed, 50 of fentanyl. PRE-PROCEDURE DIAGNOSES: Unstable angina, [id number] myocardial infarction. PROCEDURE PERFORMED: Left heart catheterization. FINDINGS: Nonobstructive coronary artery disease, 50% RCA disease. FINAL DIAGNOSIS: Nonobstructive coronary artery disease. POST PROCEDURE CONDITION: Post procedure, the patient's condition is stable. VASCULAR ACCESS SITE: Right femoral artery. CLOSING DEVICE: Angio-Seal. TOTAL RADIATION DOSE: 1149.28 milligray unit. FLUORO TIME: 1.5 minutes. Cori Cloud MD
[2017-11-15] MEDS: Lidocaine 5% Patch TD SCH (16:14)
--- NOTE | 2017-11-15 18:48 | CARD ---
APPROVED REPORT Date of service: 11/15/2017 EXAM: Two-dimensional and M-mode echocardiogram with Doppler and color Doppler. INDICATION NSTEMI 2D DIMENSIONS Left Atrium (2D)5.2 (1.6-4.0cm)IVSd0.9 (0.7-1.1cm) LVDd4.5 (3.9-5.9cm)PWd1.1 (0.7-1.1cm) Aortic Valve AO Peak GR.16mmHg Mitral Valve E/A ratio0.0 TDI E/Lateral E'0.0E/Medial E'0.0 Tricuspid Valve RAP [id number] Peak Gr.[id number] LEFT VENTRICLE The left ventricle is normal size. There is normal left ventricular wall thickness. The systolic function is mildly impaired. Apical hypokinesis Transmitral Doppler flow pattern is Grade I-abnormal relaxation pattern. RIGHT VENTRICLE The right ventricle is normal size. There is normal right ventricular wall thickness. The right ventricular systolic function is normal. ATRIA The left atrium is moderately dilated. The right atrium is moderately dilated. AORTIC VALVE The aortic valve is mildly thickened. No aortic regurgitation is present. There is no aortic valvular stenosis. MITRAL VALVE The mitral valve is mildly thickened. Mitral regurgitation is mild to moderate. There is no mitral valve stenosis. TRICUSPID VALVE The tricuspid valve is normal in structure. There is severe tricuspid regurgitation. There is severe pulmonary hypertension. PULMONIC VALVE The pulmonary valve is normal in structure. There is mild to moderate pulmonic valvular regurgitation. GREAT VESSELS The aortic root is normal in size. The IVC is normal in size and collapses >50% with inspiration. <Conclusion> The left ventricle is normal size. There is normal left ventricular wall thickness. The systolic function is mildly impaired. Apical hypokinesis Transmitral Doppler flow pattern is Grade I-abnormal relaxation pattern. Mitral regurgitation is mild to moderate. There is mild to moderate pulmonic valvular regurgitation. There is severe tricuspid regurgitation. There is severe pulmonary hypertension.
--- NOTE | 2017-11-15 18:55 | CARD ---
APPROVED REPORT Date of service: 11/15/2017 Procedure(s) performed: Left Heart Catheterization HISTORY The patient is a 82 year-old female with a history of : diabetes mellitus with diet treatment , previous diagnostic cath, tobacco history() : The patient is a former smoker , hypertension , dyslipidemia , Admitted with Back pain and serial positive troponin. INDICATION The indication(s) include : non-STEMI . CASE TECHNIQUE The patient was brought urgently to the Cardiac Catheterization Laboratory in a fasting state and was prepped and draped in a sterile manner. The right femoral groin was infiltrated with 2% Lidocaine subcutaneous anesthesia. A sheath was inserted into the right femoral artery without difficulty. Coronary angiography was performed using coronary diagnostic catheters. The left coronary system was accessed and visualized with a Diagnostic ,6F JL4 CATH DXT 100 CM catheter. The right coronary system was accessed and visualized with a Diagnostic ,6F JR 4 CATH DXT 100 CM catheter. The left ventricle was accessed and visualized with a 6F PIGTAIL 145 CATH DXT 110 CM catheter. Left ventricular/Aortic Valve gradient assessed on pullback. Left ventriculogram was performed in VILLEDA projection. The patient tolerated the procedure well and there were no complications associated with the procedure. Vessel Analysis The patient's coronary anatomy is right dominant. The left main coronary artery is a medium size vessel with diffuse calcification noted throughout this vessel and without significant stenosis. The left main bifurcates to the left anterior descending and circumflex. The left anterior descending artery is a medium size vessel with diffuse calcification noted throughout this vessel and without significant stenosis. There is a 30% stenosis in the proximal segment. The first diagonal branch is a small size vessel with diffuse calcification noted throughout this vessel and without significant stenosis. The circumflex artery is a medium size vessel with diffuse calcification noted throughout this vessel and without significant stenosis. The first obtuse marginal branch is a small size vessel with diffuse calcification noted throughout this vessel and without significant stenosis. The second obtuse marginal branch is a medium size vessel with diffuse calcification noted throughout this vessel and without significant stenosis. The right coronary artery is a large size vessel with diffuse calcification noted throughout this vessel and without significant stenosis. There is a 40% stenosis in the mid to Distal segment. The right posterior descending artery is a small size vessel with diffuse calcification noted throughout this vessel and with significant stenosis. There is a 55% stenosis in the proximal segment. The right posterolateral branch is a small size vessel with diffuse calcification noted throughout this vessel and without significant stenosis. Left Ventricle The left ventricle is normal in size with normal contractility. There was no cardiomyopathy. The left ventricular ejection fraction is estimated to be 60-65%. The left ventricular end diastolic pressure is 18-20 mmHg. There was no gradient across the aortic valve upon pullback. Conclusion Non obstructive CAD R PDA has proximal 55% stenosis. Preserved LV Fx, EF-60-65%, [id number] mmof hg. positive troponin is possibly non cardiac source. Recommendations Aggressive Medical TherapyCardiac Risk Reduction Program Cc; Drs. Givens
--- NOTE | 2017-11-15 18:56 | PN ---
Copied To: Cori Cloud MD Attending MD: Cori Cloud MD DATE: 11/15/2017 REASON FOR CONSULTATION AND FOLLOWUP: Chest pain and non-ST segment myocardial infarction. SUBJECTIVE: The patient is complaining of back pain. PHYSICAL EXAMINATION: GENERAL: Not in any apparent distress. VITAL SIGNS: Temperature afebrile, heart rate 79, blood pressure 130/80. HEENT: PERRLA. Extraocular muscles intact. NECK: Supple. No carotid bruits or thyromegaly. CHEST: Clear to auscultation. HEART: S1 and S2 regular. ABDOMEN: Soft. EXTREMITIES: Clubbing and cyanosis negative. LABORATORY DATA: WBC 6.4, hemoglobin 11.5, hematocrit 34.6, platelet count 211. Chemistry shows sodium 140, potassium 3.9, chloride 106, carbon dioxide 27, anion gap of 13, BUN 9, creatinine 0.5. Troponin 0.31 and 0.25. IMPRESSION: An 82-year-old female with past medical history significant for nonobstructive coronary artery disease, diabetes, hypertension, hyperlipidemia, who came in with chest pain, positive troponin, history of cardiac catheterization done in 12/2016, nonobstructive coronary artery disease at that time. The patient underwent yesterday CT angiogram, no evidence of acute dissection or intraabdominal finding. Last catheterization on 01/14/2017 after having abnormal stress test that revealed right coronary artery is dominant, left main essentially free of significant disease, left anterior descending artery 30% stenosis noted. Circumflex luminal irregularity 50% in the mid segment, right coronary artery ectatic with 40%-50% stenosis. Left ventriculogram showed ejection fraction 55%-60%. Left ventricular end-diastolic pressure is 12-14. Ostial right posterior descending artery has 60%-70% stenosis, medical treatment recommended. Left ventricular ejection fraction is 55%-60%. Admitted with chest pain, fzk-VC-amgrqkcyd myocardial infarction. Currently, the patient is on heparin. We will resume aspirin, Plavix. Further recommendation after the cardiac catheterization. History of hyperthyroidism. We will try to do minimal dye. Discussed with the daughter. We will follow with you. Thank you, Dr. Givens, for providing us the opportunity in taking care of the patient, Kevin Miller. Cori Cloud MD [facility] # [id number]
[2017-11-16 06:35] VITALS: O2SAT 98
[2017-11-16 07:25] LABS: BASO # 0.01 K/mm3 (0.0-2.0); BASO % 0.1 % (0.0-3.0); EOS % 0.4 % (1.5-5.0); GRAN # 5.82 (1.4-6.5); GRAN % 74.8 % (50.0-68.0); HEMOGLOBIN 11.6 g/dL (12.0-16.0); LYMPH # 1.6 (1.2-3.4); LYMPH % 20.6 % (22.0-35.0); MEAN CELL VOLUME 71.8 fl (80.0-105.0); MEAN CORPUSCULAR HGB CONC 33.4 g/dl (31.0-37.0); MEAN PLATELET VOLUME 10.2 fl (7.0-11.0); MONO # 0.3 (0.1-0.6); MONO % 4.1 % (1.0-6.0); RBC 4.83 10^6/uL (3.5-6.1); RED CELL DISTRIBUTION WIDTH 15.4 % (11.5-14.5); WHITE BLOOD COUNT 7.8 10^3/ul (4.5-11.0)
[2017-11-16 08:04] LABS: BILIRUBIN,DIRECT 0.1 mg/dL (0.0-0.4)
[2017-11-16 08:22] LABS: BLOOD UREA NITROGEN 6 mg/dL (7-21); CALCIUM 9.5 mg/dL (8.4-10.5); GFR AFRICAN-AMERICAN > 60; GFR NON-AFRICAN AMERICAN > 60
[2017-11-16 08:23] LABS: ALB/GLOB RATIO 1.2 (1.1-1.8); ALBUMIN 3.7 g/dL (3.0-4.8); ALT/SGPT 43 U/L (7-56); AST/SGOT 51 U/L (14-36)
[2017-11-16] MEDS: methIMAzole 5 MG TAB PO SCH ×2 (09:23→17:24)
[2017-11-16] MEDS: Lidocaine 5% Patch TD SCH (09:24)
[2017-11-16] MEDS ORDERED: Bisacodyl 5mg EC Tab PO ONE (10:08)
[2017-11-16] MEDS ORDERED: Magnesium Hydroxide Susp 30 ml UD PO ONE (11:02)
[2017-11-16] MEDS ORDERED: Potassium Chloride 20 mEq ER Tab PO ONE (11:24)
--- NOTE | 2017-11-16 12:45 | RAD ---
Date of service: 11/15/2017 PROCEDURE: Radiographs of the chest and bilateral ribs HISTORY: RIB CAGE PAIN COMPARISON: None available. TECHNIQUE: Frontal radiograph of the chest and multiple oblique radiographs of the bilateral ribs were obtained. FINDINGS: RIGHT RIBS: No fracture or focal lesion visualized. LEFT RIBS: No fracture or focal lesion visualized. LUNGS: Clear. PLEURA: No pneumothorax or pleural fluid. CARDIOVASCULAR: Normal sized heart. No pulmonary vascular congestion. OTHER FINDINGS: None. IMPRESSION: Unremarkable radiographs of the chest and bilateral ribs. No rib fracture.
[2017-11-16 13:03] LABS: FERRITIN 51.1 ng/mL
[2017-11-16 13:34] LABS: FOLATE > 20.0 ng/mL
[2017-11-16] MEDS: Sildenafil 20 MG TAB PO SCH ×2 (13:51→17:24)
--- NOTE | 2017-11-16 14:15 | RAD ---
Date of service: 11/16/2017 PROCEDURE: Cervical, thoracic and lumbar spine HISTORY: spine pain COMPARISON: Not available TECHNIQUE: AP and lateral radiographs of the cervical, thoracic and lumbar spine are submitted. A supplemental open mouth view of the cervical spine is submitted. FINDINGS: C-spine: The vertebral bodies are maintained in height. The intervertebral disc spaces are preserved. Normal alignment is maintained. The atlantoaxial articulation is unremarkable. Thoracic spine: The vertebral bodies are maintained in height. Normal alignment is maintained. The intervertebral disc spaces are preserved. The paraspinous soft tissues are unremarkable. Lumbar spine: The vertebral bodies are maintained in height. There is mild dextroscoliosis of the lumbar spine. Normal alignment is maintained. There is narrowing of the L2-3 intervertebral disc space consistent with degenerative disc disease. The remaining disc spaces are maintained in height. IMPRESSION: Degenerative disc disease at L2-3. Minimal lumbar dextroscoliosis. Otherwise unremarkable examination.
--- NOTE | 2017-11-16 14:35 | PN ---
Copied To: Cori Cloud MD Attending MD: Cori Cloud MD DATE: 11/16/2017 REASON FOR THE CONSULTATION: Followup non-ST segment myocardial infarction, abdominal pain, status post cardiac catheterization, nonobstructive coronary artery disease. SUBJECTIVE: The patient denies any chest pain, shortness of breath or any palpitations, but complained of back pain. PHYSICAL EXAMINATION: VITAL SIGNS: Temperature afebrile, heart rate 69, blood pressure 154/70. HEENT: PERRLA. Extraocular muscles intact. NECK: Supple. No carotid bruit or thyromegaly. CHEST: Clear to auscultation. HEART: S1, S2 regular. ABDOMEN: Soft. EXTREMITIES: Clubbing cyanosis negative. Right femoral area appears okay, no hematoma noted. Distal 1+, good pulse noted. LABORATORY DATA: Blood workup: WBC 7.8, hemoglobin 11.3, hematocrit 34.7, platelet count 199. Chemistry shows sodium 142, potassium 3.8, chloride 107, carbon dioxide 25, anion gap of 14, BUN 16, creatinine 0.5. Atypical chest pain, status post cardiac catheterization, nonobstructive coronary artery disease, DOOLEY to RPD and proximal 55% stenosis, preserved left ventricular function, ejection fraction 60% to 65%, EDP was in the range of 18 to 20, possibility is positive troponin secondary to noncardiac source. The patient had echocardiography done yesterday on 11/15/2017 that revealed mitral regurgitation, fwex-db-axmftale tricuspid regurgitation, nniy-kv-cbekzahi pulmonary, right ventricular systolic pressure of 84 consistent with pulmonary hypertension, probably the elevated troponin is most likely secondary to possible pulmonary hypertension. The patient had CT angio, which rules out no evidence of acute dissection or pulmonary embolus. Duplex scan is negative for DVT. IMPRESSION: An 82-year-old female admitted with complaint of back pain, positive troponin, underwent cardiac catheterization, nonobstructive coronary artery disease secondary to cardiac catheterization before the patient had in 01/2017, also nonobstructive coronary artery disease. Echo shows pulmonary hypertension most likely this positive troponin is secondary to pulmonary hypertension. RECOMMENDATIONS: We will start sildenafil for pulmonary hypertension, also the patient complained of back pain. Continue Naprosyn, continue baby aspirin, discontinue Plavix, TSH is elevated, continue methimazole, history of hyperthyroidism in the past and hypertension. We will follow with you. Continue atorvastatin. We will start Revatio. Thank you, Dr. Givens, for providing us the opportunity in taking care of Kevin Angela. Cori Cloud MD
--- NOTE | 2017-11-16 14:42 | RAD ---
Date of service: 11/16/2017 HISTORY: vomiting COMPARISON: No prior. FINDINGS: BOWEL: Normal. No obstruction. No free air. BONES: Normal. OTHER FINDINGS: None. IMPRESSION: No active disease.
--- NOTE | 2017-11-16 15:55 | PN ---
FINAL PROGRESS NOTE AND DISCHARGE SUMMARY Copied To: Anish Givens MD Attending MD: Anish Givens MD DATE: 11/16/2017 LOCATION: The patient was seen in room 274, bed 1 SUBJECTIVE: The patient was seen and examined with the patient's nurse. According to the patient's nurse, the patient is complaining of constipation. The patient has decreasing back pain. OBJECTIVE: VITAL SIGNS: T-max is 98.7. Telemetry heart rate is 81, 69, and 57. Telemetry monitoring shows sinus rhythm, sinus bradycardia. Blood pressure 154/70, 136/65, 124/64, 130/64, 127/72, respirations 20, O2 sat 98%. HEENT: Head: Normocephalic, atraumatic. Mary Esther conjunctivae. Anicteric sclerae. No oropharyngeal lesion. NECK: No neck rigidity. CHEST: Kyphosis. Questionable thoracic and lumbar spinal tenderness and ribcage tenderness on the right side noted. ABDOMEN: Soft. Positive bowel sound. No hepatosplenomegaly noted. GENITALIA: Female. RECTAL: Deferred. EXTREMITIES: Shows no pitting edema, no calf tenderness, no Homans sign. The patient is ambulating from bed to the bathroom without any difficulty. NEUROLOGIC: The patient is alert, awake, responsive, is able to move upper and lower extremity without assistance. DIAGNOSTICS: 11/16/2017: WBC 7.8, hemoglobin and hematocrit 11.6 and 34.7, and platelets 199. Sodium 142, potassium 3.8, chloride 107, CO2 of 25, anion gap 14. BUN 6, creatinine 0.5. GFR greater than 60. Glucose 86. AST 51. LFTs are normal. Cholesterol 131, LDL 58, HDL 57. Thyroid panel, TSH is low at less than 0.25, T4 of 7.3 which is corrected since the patient was started on the treatment with Tapazole. Urinalysis is negative, MRSA not detected. The patient's cardiac catheterization report was noted. Echocardiogram report was noted. FINAL IMPRESSION & PLAN AND DISCHARGE DIAGNOSES: 1. Questionable Non-ST elevation myocardial infarction with elevated troponin and EKG Ischemic changes. 2. Status post cardiac catheterization. 3. A 30% stenosis of the proximal left anterior descending artery. 4. A 40% stenosis of the distal right coronary artery. 5. A 50% stenosis of the proximal right coronary artery. 6. Left ventricular ejection fraction of 60% to 65%. 7. Nonobstructive coronary artery disease. 8. A 55% stenosis of the right posterior descending artery. 9. Mildly impaired left ventricular systolic function with apical hypokinesis and grade 1 abnormal relaxation pattern. 10. Moderately dilated left and right atrium. 11. Mildly thickened mitral and aortic valve. 12. Moderate mitral regurgitation. 13. Severe tricuspid regurgitation with severe pulmonary hypertension. 14. Severe pulmonary hypertension with right ventricular systolic pressure of 84 mmHg. 15. Constipation. 16. Hypertension. 17. Bradycardia. 18. History of hypothyroidism. 19. Normocytic anemia. 20. Elevated D-dimer. 21. Transaminitis. 22. Probable acute right-sided diastolic congestive heart failure with elevated BNP. 23. Lumbar spine pain and left ribcage pain, etiology undetermined. 24. Hyperlipidemia. 25. Lumbar spine degenerative disc disease and Lumbar Dextroscoliosis. PLAN: At this time, the patient has been ordered stool softeners and suppositories. Repeat labs ordered. Rib series results are pending. The patient was seen by Hematology. Labs ordered, the results of which are pending. The patient's case referred to TCU. CURRENT DISCHARGE MEDICATIONS: Colace 100 mg three times a day, Dulcolax suppository x1 ordered, Ecotrin 81 mg daily, Lidoderm 5% patch to the affected area daily, Lipitor 10 mg daily, Protonix 40 mg daily, Tapazole 5 mg twice a day.ULTRAM 50MG BID PRN FOR PAIN. The patient's spine x-rays are ordered, results are pending. Chest PT, incentive spirometry, oxygen ordered. Out of bed ordered. Physical therapy, occupational therapy, and ambulation therapy ordered. The patient's daughter updated about the patient's condition, diagnosis, test results, recommendation, recommendation by Cardiology noted. At present, if the patient stays stable and if the patient's further diagnostic therapeutic data is normal and negative, the patient will be considered for discharge home with outpatient followup with Cardiology, Endocrinology, Hematology/Oncology. Dictated and electronically signed, not read. Anish Givens MD [facility]
[2017-11-16 17:58] VITALS: BP 130/69; PULSE 63; RESP 16; TEMP 98.5
[2017-11-17 07:11] LABS: MCH 24.4 pg (27.0-33.0); MCV 74.7 fL (80.0-100.0)
[2017-11-17] MEDS ORDERED: Pantoprazole 40 mg EC Tab PO SCH (07:30)
== END 2017-11-16 18:35 | disposition home or self-care (01) | DRG 121 ==
LOC: ED 21:59 → ERH 11-14 02:06 → CCU 11-14 05:39 → 2RSO 11-15 19:02
PROVIDERS: ADMIT Internal Medicine; ATTEND Internal Medicine
PROC: 4A023N7 Measurement of Cardiac Sampling and Pressure, Left Heart, Percutaneous Approach (ICD-10-PCS; principal; 2017-11-15)
PROC: B2151ZZ Fluoroscopy of Left Heart using Low Osmolar Contrast (ICD-10-PCS; 2017-11-15)
PROC: B2111ZZ Fluoroscopy of Multiple Coronary Arteries using Low Osmolar Contrast (ICD-10-PCS; 2017-11-15)
DX: I21.4 Non-ST elevation (NSTEMI) myocardial infarction (principal); I50.31 Acute diastolic (congestive) heart failure; I11.0 Hypertensive heart disease with heart failure; I45.2 Bifascicular block; E05.90 Thyrotoxicosis, unspecified without thyrotoxic crisis or storm; I08.1 Rheumatic disorders of both mitral and tricuspid valves; I25.110 Atherosclerotic heart disease of native coronary artery with unstable angina pectoris; E11.9 Type 2 diabetes mellitus without complications; E78.5 Hyperlipidemia, unspecified; E55.9 Vitamin D deficiency, unspecified; D64.9 Anemia, unspecified; K83.8 Other specified diseases of biliary tract; I27.20 Pulmonary hypertension, unspecified; K59.00 Constipation, unspecified; M51.36 Other intervertebral disc degeneration, lumbar region; Z87.891 Personal history of nicotine dependence; Z79.82 Long term (current) use of aspirin